=== PATIENT | female | born 1965 | race African-American/Black ===

== ENCOUNTER 2017-03-21 08:52 | Inpatient (IN) ==
--- NOTE | 2017-03-21 10:22 | Order Completion Report ---
See report scanned to EMR
[2017-03-21 10:23] LABS: Apearance,Urine CLEAR (Clear); Bilirubin,Urine Negative (Negative); Blood, Urine Negative (Negative); Glucose,Urine (UA) 50 mg/dL (Negative); Ketones,Urine Negative (Negative); Mucus,Urine Occasional /LPF (Occasional); Nitrite,Urine Negative (Negative); Protein,Urine >=500 MG/DL; RBC,Urine <1 /HPF (0-4); Squamous Epithelial Cell,Urine Occasional /HPF (0-10); Urine Color Yellow (Yellow); Urine Specific Gravity 1.015 (1.001-1.035); Urine Urobilinogen < 2.0 EU/DL (0.2-1.0); WBC,Urine 2 /HPF (0-6)
[2017-03-21 10:51] LABS: Basophils % 0.4 % (0.0-0.8); Eosinophils # 0.2 10*3/uL (0.0-0.87); Eosinophils % 4.3 % (0.00-10.9); Hematocrit 26.9 VOL% (35.7-47.0); Hemoglobin 8.6 GM/DL (12.0-16.0); Immature Granulocytes % 0.2 %; Immature Granulocytes Absolute 0.01 #; Lymphocytes % 18.8 % (21.3-54.2); Mean Corpuscular Hemoglobin 30 PG (27-34); Mean Corpuscular Volume 94.1 FL (87-102); Mean Platelet Volume 11.9 FL (9.6-12.0); Monocytes # 0.6 10*3/uL (0.11-0.8); Monocytes % 11.7 % (1.7-12.7); Neutrophils # 3.4 10*3/uL (1.4-7.4); Neutrophils % 64.6 % (38.7-73.9); Platelet Count 165 T/CUMM (130-400); Red Blood Count 2.86 MC/CUMM (3.8-5.5); Red Cell Distribution Width 13.8 % (9.3-17.3); White Blood Count 5.3 T/CUMM (4-12)
[2017-03-21] MEDS ORDERED: ASPIRIN EC 325 MG TABLET PO STA (11:14)
[2017-03-21] MEDS ORDERED: ASPIRIN 325 MG TABLET ONE (11:17)
[2017-03-21] MEDS ORDERED: ONDANSETRON ODT 4 MG TABLET PO ONE (11:20)
[2017-03-21] MEDS ORDERED: ONDANSETRON ODT 4 MG TABLET PO STA (11:22)
[2017-03-21 11:25] LABS: Alanine Aminotransferase 10 U/L (13-56); Albumin 2.4 G/DL (3.4-5.0); Alkaline Phosphatase 78 U/L (45-117); Aspartate Amino Transferase 17 U/L (0-37); Bilirubin,Total < 0.39 MG/DL (0.2-1.0); Blood Urea Nitrogen 31 MG/DL (7-18); Calcium 8.9 MG/DL (8.5-10.1); Glucose 86 MG/DL (74-106); Osmolality,Calculated 286.3 MOS/KG (273-304); Potassium 4.6 MMOL/L (3.5-5.1); Sodium 141 MMOL/L (136-145); Total Protein 7.9 G/DL (6.4-8.3)
[2017-03-21] MEDS ORDERED: MORPHINE 2 MG/1 ML SYRINGE IV STA (11:38)
[2017-03-21] MEDS ORDERED: MORPHINE 2 MG/1 ML SYRINGE IM STA (11:40)
[2017-03-21] MEDS ORDERED: MORPHINE 2 MG/1 ML SYRINGE ONE (11:41)
--- NOTE | 2017-03-21 11:46 | XRay Report ---
XR chest 2V Date: 03/21/2017 11:13 AM History: Chest pain, back pain Comparison: 07/07/2014 Technique: PA and lateral chest Findings: The heart is slightly smaller in size with decreased perihilar parenchymal findings. Progressive parenchymal findings at the left lung base with larger somewhat loculated appearing left pleural effusion. Associated pleural thickening. Prior cholecystectomy with degenerative changes. Impression: Improved pulmonary edema/infiltration. Progressive atelectasis or other pleural-based pathology at the left lung base with larger loculated appearing small to moderate left pleural effusion with associated indeterminant pleural thickening. Follow-up is recommended. Left lateral decubitus chest may be helpful to determine how much free fluid is present. PROCEDURE INTERPRETED AT [facility] DEPARTMENT OF RADIOLOGY Final Report Signed by: Dr. Ally Luevano
[2017-03-21] MEDS ORDERED: ONDANSETRON 4 MG/2 ML VIAL IM STA (11:55)
[2017-03-21] MEDS ORDERED: ONDANSETRON 4 MG/2 ML VIAL ONE (11:56)
[2017-03-21 12:39] LABS: Troponin I Only 0.153 NG/ML (0.00-0.045)
--- NOTE | 2017-03-21 13:02 | Emergency Department Note ---
Arrival - Arrival Chief Complaint: Back Stated Complaint: back pain ED Nursing Triage Note: PT C/O LOWER BACK PAIN X2 WEEKS THAT HAS NOW INCREASED TO ALL OVER BACK PAIN. DENIES INJURY. Mode of Arrival: Ambulatory Source: Patient Time Seen by Provider: 03/21/17 09:57 - History of Present Illness HPI Narrative: 51 y/o female presents to the Emergency Department complaining of lower back pain, nausea, dizziness, and intermittent chest pain. Pain started two weeks ago but worsened over the last two day. Pain is exacerbated with movement and relieved with rest. Denies chest pain now. States her chest pain is on the right side. Denies radiation of pain. She denies known injury and states "I think it may be related to my kidneys". Patient states she is from [place] but moved to [place] approximately one month ago. Before leaving [place] she was going through the steps to get dialysis started. She never started dialysis before she left [place] and has not seen a Travel Specialist of Primary Care Physician here in [place]. Past medical history significant for dyslipidemia, HTN, renal failure, NIDDM, and Lupus. No local Primary Care Physician. Onset (ago): week(s) (14) Consistency: intermittent Severity: mild Quality: aching Allergies/Adverse Reactions: Allergies Allergy/AdvReac Type Severity Reaction Status Date / Time lisinopril Allergy Swelling Verified 03/21/17 09:20 of Lip/Tongue/Throat metronidazole [From Flagyl] Allergy RASH Verified 03/21/17 09:20 Home Medications: Home Medications Medication Instructions Recorded Confirmed Type Albuterol Sulfate [Ventolin HFA] 2 puff INH Q4HR 03/21/17 03/21/17 History Atorvastatin [Lipitor] 40 mg PO DAILY 03/21/17 03/21/17 History Bumetanide 1 mg PO BID 03/21/17 03/21/17 History Citalopram [CeleXA] 10 mg PO DAILY 03/21/17 03/21/17 History Divalproex [Depakote] 250 mg PO BEDTIME 03/21/17 03/21/17 History Ergocalciferol (Vitamin D2) 50,000 unit PO Q7DAY 03/21/17 03/21/17 History [Vitamin D2] Fluticasone 50 Mcg Nasal Onward 2 sprays BOTH NARES DAILY 03/21/17 03/21/17 History [Flonase Nasal Onward] Hydrocodone/Acetaminophen [[place] 1 each PO BID PRN 03/21/17 03/21/17 History 10-325 Tablet] Hydroxychloroquine [Plaquenil] 200 mg PO DAILY 03/21/17 03/21/17 History Levothyroxine Tab [Synthroid Tab] 75 mcg PO DAILY@0700 03/21/17 03/21/17 History Metoprolol Succinate 100 mg PO DAILY 03/21/17 03/21/17 History NIFEdipine [Nifedipine ER] 30 mg PO DAILY 03/21/17 03/21/17 History Pantoprazole Tab [Protonix Tab] 40 mg PO DAILY 03/21/17 03/21/17 History Zolpidem [Ambien] 10 mg PO BEDTIME PRN 03/21/17 03/21/17 History buPROPion HCl [Bupropion HCl Sr] 150 mg PO DAILY 03/21/17 03/21/17 History predniSONE TAB [PredniSONE] 5 mg PO DAILY 03/21/17 03/21/17 History Review of System - Review of System 12 point system: reviewed and no additional remarkable complaints except as stated - Review of System Cardiovascular: Present: chest pain Gastrointestinal: Present: nausea, vomiting Musculoskeletal: Present: lower back pain Neurological: Present: headache Medical,Surgical,& Family Hx - Medical History Cardio: History of: Hypertension Endocrine: History of: Diabetes Mellitus (NIDDM), Dyslipidemia, Thyroid Disorder Rheumatology: History of;: Systemic Lupus Erythematosus Renal: History of: Renal Failure - Social History Smoking Status: Former smoker Frequency of Alcohol Use: None Type of Drug Use: None Exam Vital Signs: Vital Signs Temperature 97.4 F L 03/22/17 04:00 Pulse Rate 68 03/22/17 04:00 Respiratory Rate 18 03/22/17 04:00 Blood Pressure 126/85 03/22/17 04:00 O2 Sat by Pulse Oximetry 96 03/22/17 04:00 - General General appearance: alert, in no apparent distress - Eye Eye exam: Present: PERRL, EOMI - ENT ENT exam: Present: normal exam, normal oropharynx, mucous membranes moist - Chest Chest inspection: Present: normal inspection - Respiratory Respiratory exam: Present: normal lung sounds bilaterally - Cardiovascular Cardiovascular exam: Present: regular rate, normal rhythm, normal heart sounds - Abdominal Exam Abdominal exam: Present: soft, normal bowel sounds. Absent: tenderness - Extremities Exam Extremities exam: Present: normal inspection, full ROM - Neurological Exam Neurological exam: Present: alert, oriented X3, CN II-XII intact, normal gait - Psychiatric Psychiatric exam: Present: normal affect, normal mood - Skin Skin exam: Present: warm, dry Course Course Narrative: While patient is in the Emergency Department she begins complaining of a headache. States she has a history of migraines and that this headache is similar to headaches she has had in the past. - Consultations Consultation #1: Hospitalist Time: 13:10 (Will admit to Hospitalist ) Results - Labs CBC & BMP: 03/22/17 00:53 03/22/17 00:53 Lab Results: I have reviewed the patients labs Labs: Troponin: 0.134 UA: +protein - EKG EKG results: sinus rhythm - Diagnostic Findings Procedure: Chest x-ray: image reviewed by me, report reviewed by me (see dicated report ), X-ray: image reviewed by me, report reviewed by me (CXR: see dictated report ) Disposition Clinical Impression: Chest pain, Back pain, Renal failure, Anemia Case discussed with: patient Disposition: Still a Patient Condition: Stable
--- NOTE | 2017-03-21 14:44 | Hospitalist History & Physical ---
Assessment and Plan (1) Chest pain Status: Acute Assessment and plan: Intermittent right sided chest pain. Elevated troponin (possibly secondary to renal failure). Will do serial ekgs and troponins. Consult cards. Cardiac monitoring. Chest x-ray shows improved pulmonary edema/infiltration - follow up suggested will order CT. Current Visit: Yes (2) Diabetes Status: Acute Assessment and plan: accuchecks achs. SSI. Current Visit: Yes (3) Renal failure Status: Acute Assessment and plan: Pt. has bun/ creatinine of 31/3.60. Pt. was seen by musical instruments assembler in [place] just received access about 1 month ago. Consult nephrology. Avoid nephrotoxic agents. Current Visit: Yes (4) Hypertension Status: Acute Assessment and plan: Restart home meds. Current Visit: Yes History of Present Illness Chief complaint: chest and back pain History of present illness: Ms. Brooks is a 51 year old black female with a history of GERD, hypertension, diabetes, stage IV kidney disease, and lupus presents to the ED today with complaints of lower back pain, nausea, vomiting, dizziness, and intermittent chest pain. Patient states that she has been having the lower back pain and dizziness for about 1 week but that the nausea and chest pain started over the last 2 days. Patient states that the back pain is worsened with movement and relieved with rest. Patient states that the chest pain was located on the right side of her chest. Patient denies any radiation of the chest pain. Patient denies taking any medication for the pain as she is unable to keep anything down due to the vomiting. Patient also denies any diaphoresis, vision loss, or numbness or tingling. In reference to the dizziness, patient states that the onset is random and states she almost falls when it occurs. She denies falling however but states she "feels funny" when it occurs. Patient is accompanied by her significant other. She just moved to [place] from [place] about a month ago. She reports that before the move she was being seen by musical instruments assembler and had access placed for dialysis. She has not been seen by a musical instruments assembler here nor has she established care with a PCP. On evaluation in the ED, pt noted to have a bun/creatinine of 31/3.60 and an elevated troponin of 0.153. Pt is also anemic with a h&h of 8.6/26.9. Pt's case has been discussed with ER physician and hospitalist Dr. Garcia. Pt. will be admitted to the hospitalist service for further evaluation and treatment. Pt's home meds will be reviewed and reconciled. CODE STATUS was also discussed and pt. wishes to be a full code. Allergies Allergy/AdvReac Type Severity Reaction Status Date / Time lisinopril Allergy Swelling Verified 03/21/17 09:20 of Lip/Tongue/Throat metronidazole [From Flagyl] Allergy RASH Verified 03/21/17 09:20 Medical,Surgical,& Family Hx - Medical History Cardio: History of: Hypertension Endocrine: History of: Diabetes Mellitus (NIDDM), Dyslipidemia, Thyroid Disorder Rheumatology: History of;: Systemic Lupus Erythematosus Renal: History of: Renal Failure - Social History Smoking Status: Former smoker Frequency of Alcohol Use: None Type of Drug Use: None Marital Status: Life Partner Lives With:: Significant Other Functional capacity: wheelchair bound 12 point system: reviewed and no additional remarkable complaints except as stated - Cardiovascular Cardiovascular: Present: chest pain at rest, edema. Absent: diaphoresis, dyspnea, radiating jaw, neck or arm pain - Respiratory Respiratory: Absent: cough, dyspnea Exam - Constitutional Vitals: Period Temp Pulse Resp BP Sys/Enciso Pulse Ox Last 24 Hr 98.6 F-98.6 F 76-84 16-22 160-174/104-108 100-100 General appearance: no acute distress, over weight - Head Head exam: Present: normal inspection, normocephalic - Eye Eye exam: Present: EOMI Pupils: Present: OLGA - Respiratory Respiratory exam: Present: clear to auscultation bilaterally. Absent: wheezes - Cardiovascular Cardiovascular exam: Present: regular rate and rhythm - GI/Abdominal GI/Abdominal exam: Present: normal bowel sounds, soft. Absent: tenderness - Extremities Exam Extremities exam: Present: normal inspection, edema - Neurological Exam Neurological exam: Present: alert, oriented X3 - Psychiatric Psychiatric exam: Present: normal affect, normal mood - Skin Skin exam: Present: normal color, warm, dry Results - Labs CBC & BMP: 03/21/17 09:53 03/21/17 09:53 Lab Results: I have reviewed the past 24 hour labs
[2017-03-21] MEDS ORDERED: ACETAMINOPHEN 325 MG TABLET PO PRN (15:09)
[2017-03-21] MEDS ORDERED: GLUCAGON 1 MG VIAL IM PRN (15:09)
[2017-03-21] MEDS ORDERED: DEXTROSE 50% 25 GM/50 ML VIAL IV PRN (15:09)
--- NOTE | 2017-03-21 16:12 | Cardiology Consult Note ---
<Yessenia Soria E - Last Filed: 03/21/17 16:07> Assessment and Plan - Time spent with patient Time spent with patient: Greater than 30 minutes (due to assessment, plan, and documentation) (1) Atypical chest pain Status: Acute Assessment and plan: See plan of care listed below. Current Visit: Yes (2) Diabetes Status: Chronic Assessment and plan: See plan of care listed below. Current Visit: Yes (3) Hypertension Status: Chronic Assessment and plan: See plan of care listed below. Current Visit: Yes (4) Renal failure Status: Acute Assessment and plan: See plan of care listed below. Current Visit: Yes Qualifiers: Renal failure chronicity: acute on chronic Chronic kidney disease stage: stage 4 (severe) (5) Former tobacco use Status: Chronic Assessment and plan: See plan of care listed below. Current Visit: Yes (6) Chronic anemia Status: Chronic Assessment and plan: See plan of care listed below. Current Visit: Yes (7) Elevated troponin Status: Acute Assessment and plan: See plan of care listed below. Current Visit: Yes (8) Back pain Status: Acute Assessment and plan: See plan of care listed below. Current Visit: Yes Qualifiers: Back pain location: low back pain (9) AV fistula Status: Chronic Assessment and plan: See plan of care listed below. Current Visit: Yes (10) Sleep disorder, unspecified Status: Acute Assessment and plan: See plan of care listed below. 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 Brooks is a 51 y/o BF who has a history of hypertension, diabetes, chronic kidney disease (stage IV), GERD, and lupus. She is a former smoker, quitting 1 month ago and smoking approximately 1PPD since age 18. She quit drinking alcohol 1 month ago. She recently moved to [place] from [facility] and now resides here with her boyfriend. 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 She also tells me that she saw cardiology approximately 1 year ago due to increased edema and had a stress test performed which she believes was okay. Her mother had chronic renal failure, on dialysis, as well as hypertension and at age 57. Her sister is 61, has hypertension and chronic renal failure on dialysis. Ms. Brooks presented to the emergency room today with complaints of lower back pain, nausea, vomiting, dizziness, migraine, and intermittent right sided chest pain. She states these symptoms have been ongoing for approximately 1 week. She also complains of dizziness and being easily fatigued for the past couple of months. She describes her chest discomfort as being intermittent right sided chest pains that last approximately 20 minutes and go away on their own. She is unable to adequately describe the character of her pain but tells me that it feels like her usual reflux pain. She denies exertional chest discomfort. Upon arrival, she was noted to have a creatinine of 3.6 with GFR 20, H&H 8.6 & 26.9, troponin of 0.153 with normal CPK and CKMB, potassium 4.6, D-dimer 3.6. She has undergone chest CT and we are awaiting these results. Echocardiogram is pending. EKG shows sinus rhythm, no acute ST abnormality. Chest x-ray revealed small to moderate left sided pleural effusion. Dr. Santacruz to follow with further plan and addendum. IMPRESSION/PLAN: - ATYPICAL CHEST PAIN: Will continue to cycle cardiac biomarkers and EKGs. Given her risk factors, we will proceed with cardiac screening with nuclear stress testing in the morning. Echocardiogram is pending. Will await results. - DIABETES MELLITUS: Continue accuchecks and sliding scale insulin. - HYPERTENSION: Blood pressure uncontrolled. Continue home medications. Will continue to monitor and adjust accordingly. - CHRONIC RENAL FAILURE, STAGE IV: Creatinine 3.6 with GFR 20 - FORMER TOBACCO USE: Quit 1 month ago. - CHRONIC ANEMIA: Monitor CBCs. No obvious signs of overt bleeding. - TRIVIAL TROPONIN IN THE FACE OF CRF: Will continue to follow trend. - CHRONIC LOW BACK PAIN: Will defer further management to attending. - S/P LEFT UPPER ARM AV FISTULA: Done in [place], [place]. Patient has yet to be dialyzed or establish care with nephrology in [place]. - EKG benign, ST-T wave changes only, mild. - WALLACE, UNTREATED: Diagnosed about 2 months ago, never followed up for CPAP. Will consult Sleep Medicine. - OBESITY: Chronic. - BILATERAL CAROTID BRUIT: Once she has recovered from her acute issues, she will need to follow up with Dr. Santacruz in the clinic with carotid ultrasound. CC: Zuly Garcia MD - Home Medications and Allergies Home Medications: Home Medications Medication Instructions Recorded Confirmed Type Albuterol Sulfate [Ventolin HFA] 2 puff INH Q4HR 03/21/17 03/21/17 History Atorvastatin [Lipitor] 40 mg PO DAILY 03/21/17 03/21/17 History Bumetanide 1 mg PO BID 03/21/17 03/21/17 History Citalopram [CeleXA] 10 mg PO DAILY 03/21/17 03/21/17 History Divalproex [Depakote] 250 mg PO BEDTIME 03/21/17 03/21/17 History Ergocalciferol (Vitamin D2) 50,000 unit PO Q7DAY 03/21/17 03/21/17 History [Vitamin D2] Fluticasone 50 Mcg Nasal [place]far[place] 2 sprays BOTH NARES DAILY 03/21/17 03/21/17 History [Flonase Nasal [place]far[place]] Hydrocodone/Acetaminophen [Inwood 1 each PO BID PRN 03/21/17 03/21/17 History 10-325 Tablet] Hydroxychloroquine [Plaquenil] 200 mg PO DAILY 03/21/17 03/21/17 History Levothyroxine Tab [Synthroid Tab] 75 mcg PO DAILY@0700 03/21/17 03/21/17 History Metoprolol Succinate 100 mg PO DAILY 03/21/17 03/21/17 History NIFEdipine [Nifedipine ER] 30 mg PO DAILY 03/21/17 03/21/17 History Pantoprazole Tab [Protonix Tab] 40 mg PO DAILY 03/21/17 03/21/17 History Zolpidem [Ambien] 10 mg PO BEDTIME PRN 03/21/17 03/21/17 History buPROPion HCl [Bupropion HCl Sr] 150 mg PO DAILY 03/21/17 03/21/17 History predniSONE TAB [PredniSONE] 5 mg PO DAILY 03/21/17 03/21/17 History Allergies/Adverse Reactions: Allergies Allergy/AdvReac Type Severity Reaction Status Date / Time lisinopril Allergy Swelling Verified 03/21/17 09:20 of Lip/Tongue/Throat metronidazole [From Flagyl] Allergy RASH Verified 03/21/17 09:20 Review of systems: - Constitutional: Present: fatigue, headache(s), As per HPI. Absent: anorexia, chills, daytime sleepiness, excessive sweating, fever(s), frequent falls, increased appetite, lethargy, malaise, night sweats, stops breathing during sleep, weakness, weight gain, weight loss. - EENT Eyes: Present: As per HPI. Absent: blurry vision, diplopia, loss of vision Ears: Present: As per HPI. Absent: decreased hearing, ear discharge, ear pain Nose, mouth and throat: Present: As per HPI. Absent: dysphagia, epistaxis, headache(s), hoarseness, lip swelling, nasal congestion, neck mass, neck pain, sinus pressure, sore throat, throat swelling, tongue swelling, vertigo - Cardiovascular: Present: chest pain at rest, dyspnea, dyspnea on exertion, edema, as per HPI. Absent: chest pain with activity, claudication, diaphoresis , radiating jaw, neck or arm pain, lightheadedness, orthopnea, palpitations, PND - Respiratory: Present: dyspnea, dyspnea on exertion, cough, as per HPI. Absent : hemoptysis, wheezing, snoring, pain on inspiration - Gastrointestinal: Present: nausea, vomiting, abdominal pain, constipation, heartburn, As per HPI. Absent: bloating, change in bowel habits, diarrhea, hematemesis, hematochezia, loose stools, melena, - Genitourinary: Present: As per HPI. Absent: difficulty urinating, dysuria, flank pain, hematuria, nocturia, urinary frequency, urinary incontinence - Musculoskeletal: Present: back pain, As per HPI. Absent: arthralgias, joint swelling, limited range of motion, muscle cramps, muscle weakness, myalgias - Neurological: Present: dizziness, As per HPI. Absent: abnormal gait, abnormal speech, behavioral changes, confusion, convulsions, disequilibrium, focal weakness, frequent falls, headache(s), memory loss, numbness, paresthesias, radicular pain, syncope, tremor(s) - Psychiatric: Present: As per HPI. Absent: anxiety, confusion, depression, panic attacks - Endocrine: Present: fatigue, As per HPI. Absent: cold intolerance, heat intolerance, polydipsia, polyphagia - Hematologic/Lymphatic: Present: As per HPI. Absent: easy bleeding, easy bruising, lymphadenopathy Medical,Surgical,& Family Hx - Medical History Cardio: History of: Hypertension Psychological: History of: Anxiety Disorders, Depression Endocrine: History of: Diabetes Mellitus (NIDDM), Dyslipidemia, Thyroid Disorder Rheumatology: History of;: Gout, Systemic Lupus Erythematosus Respiratory: History of: Obstructive Sleep Apnea Renal: History of: Renal Failure Gastrointestinal: History of: GERD Other: No history of: Cancer - Surgical History Cardiac Surgeries: Sugical HX of: Cardiac Catheterization Abdominal Surgeries: Patient denies: Appendectomy, Cholecystectomy, Colonoscopy, EGD Reproductive Surgeries: Surgical HX of;: Tubal Ligation - Family History Family History: Reports;: Family Diabetes (MOTHER, FATHER), Family Hypertension (FATHER) Denies;: Family Cancer, Family Heart Disease, Family Stroke - Social History Smoking Status: Former smoker Frequency of Alcohol Use: None Type of Drug Use: None Marital Status: Single Lives With:: Significant Other Functional capacity: independent ambulation Physical Examination Vital Signs Temp Pulse Resp BP Pulse Ox 98.6 F 84 16 160/104 100 03/21/17 09:16 03/21/17 09:16 03/21/17 09:16 03/21/17 09:16 03/21/17 09:16 Exam: General appearance: Appears well. Pleasant and cooperative. Overweight, no acute distress. Head exam: Present: normal inspection, normocephalic, atraumatic. Absent: hematoma, laceration Eye exam: Present: EOMI. Absent: conjunctival injection, nystagmus, periorbital swelling, scleral icterus, laceration to eyelids, jaundice Pupils: Present: PERRL. Absent: constricted, dilated, fixed, irregular, unequal ENT exam: Present: normal exam, normal external ear exam, mucous membranes moist. Neck exam: Present: normal inspection, midline trachea. Bilateral carotid bruit. Absent: masses, lymphadenopathy, tenderness, thyromegaly, Respiratory exam: Present: mildly diminished breath sounds at left lower base, otherwise clear to auscultation bilaterally. Absent: accessory muscle use, chest wall tenderness, rhonchi, wheezing. Cardiovascular exam: Present: regular rate and rhythm. Systolic murmur best appreciated at LUSB. Absent: gallop, rubs GI/Abdominal exam: Present: normal bowel sounds, soft. Absent: distended, firm , hernia, mass, tenderness. Extremities exam: Present: Normal Gait, No Clubbing, No Cyanosis, Upper Extr. Pulses 2+, Lower Extr. Pulses 2+, Trace BLE edema. Capillary refill less than 3 seconds. Musculoskeletal: Present: No Fluid Collection, No Pain, Normal Range of Motion Back exam: Present: normal inspection. Absent: muscle spasm, vertebral tenderness Neurological exam: Present: awake, alert, oriented X3, Moves all extremities well without hemiparesis or paralysis. Grossly intact without resting or essential tremor Psychiatric exam: Present: normal affect, normal mood Skin exam: Present: normal color, warm, dry, intact. Absent: cyanosis, diaphoretic, rash, urticaria Result/EKG - Labs CBC & BMP: 03/21/17 09:53 03/21/17 09:53 Lab Results: I have reviewed the past 24 hour labs Labs: Laboratory Results - last 24 hr 03/21/17 03/21/17 03/21/17 09:53 09:53 09:53 WBC 5.3 RBC 2.86 L Hgb 8.6 L Hct 26.9 L MCV 94.1 MCH 30 MCHC 32.0 RDW 13.8 Plt Count 165 MPV 11.9 Neut % (Auto) 64.6 Lymph % (Auto) 18.8 L Whitley % (Auto) 11.7 Eos % (Auto) 4.3 Baso % (Auto) 0.4 Neut # (Auto) 3.4 Lymph # (Auto) 1.0 L Whitley # (Auto) 0.6 Eos # (Auto) 0.2 Baso # (Auto) 0.0 Immature Gran % 0.2 Nucleated RBC % 0.0 Immature Gran # 0.01 Nucleated RBCs # 0.00 Immature Plt Fraction 0.0 Sodium 141 Potassium 4.6 Chloride 112 H Carbon Dioxide 22 Anion Gap 11.6 BUN 31 H Creatinine 3.60 H GFR Calculation 20 BUN/Creatinine Ratio 8.00 Glucose 86 Calculated Osmolality 286.3 Calcium 8.9 Total Bilirubin < 0.39 AST 17 ALT 10 L Alkaline Phosphatase 78 Total Creatine Kinase CK-MB (CK-2) Troponin I Total Protein 7.9 Albumin 2.4 L Globulin 5.5 H Albumin/Globulin Ratio 0.4 L Urine Color Yellow Urine Appearance Clear Urine pH 6.0 Ur Specific Congers 1.015 Urine Protein >=500 Urine Glucose (UA) 50 Urine Ketones Negative Urine Blood Negative Urine Nitrate Negative Urine Bilirubin Negative Urine Urobilinogen < 2.0 H Urine Leukocytes Negative Urine RBC <1 Urine WBC 2 Ur Squamous Epith Cells Occasional Urine Mucus Occasional Ur Culture Indicated? Not indicated 03/21/17 Unknown WBC RBC Hgb Hct MCV MCH MCHC RDW Plt Count MPV Neut % (Auto) Lymph % (Auto) Whitley % (Auto) Eos % (Auto) Baso % (Auto) Neut # (Auto) Lymph # (Auto) Whitley # (Auto) Eos # (Auto) Baso # (Auto) Immature Gran % Nucleated RBC % Immature Gran # Nucleated RBCs # Immature Plt Fraction Sodium Potassium Chloride Carbon Dioxide Anion Gap BUN Creatinine GFR Calculation BUN/Creatinine Ratio Glucose Calculated Osmolality Calcium Total Bilirubin AST ALT Alkaline Phosphatase Total Creatine Kinase 29 CK-MB (CK-2) < 1.0 Troponin I 0.153 H Total Protein Albumin Globulin Albumin/Globulin Ratio Urine Color Urine Appearance Urine pH Ur Specific Cong[place] Urine Protein Urine Glucose (UA) Urine Ketones Urine Blood Urine Nitrate Urine Bilirubin Urine Urobilinogen Urine Leukocytes Urine RBC Urine WBC Ur Squamous Epith Cells Urine Mucus Ur Culture Indicated? - EKG EKG results: interpreted by me, sinus rhythm <Erich Santacruz - Last Filed: 03/21/17 17:24> History of Present Illness - Consult Narrative History of present illness: Cardiology addendum patient examined Chart reviewed and discussed with nurse Yessenia Soria NP. Patient moved here from [facility] a little over 1 month ago. She has not established with any local physician. Atypical chest pain Multiple risk factors for CAD. Trivial troponin in the face of chronic renal failure stage IV Smoked until 1 month ago. EKG benign. Untreated obstructive sleep apnea recently diagnosed Plan Echo Doppler Lexiscan cardiac stress test Consult Dr. Nicole for WALLACE follow-up Risk factor modification CC: Zuly Garcia MD Physical Examination Vital Signs Temp Pulse Resp BP Pulse Ox 98.6 F 84 16 160/104 100 03/21/17 09:16 03/21/17 09:16 03/21/17 09:16 03/21/17 09:16 03/21/17 09:16 Result/EKG - Labs CBC & BMP: 03/21/17 09:53 03/21/17 09:53 Labs: Laboratory Results - last 24 hr 03/21/17 03/21/17 03/21/17 09:53 09:53 09:53 WBC 5.3 RBC 2.86 L Hgb 8.6 L Hct 26.9 L MCV 94.1 MCH 30 MCHC 32.0 RDW 13.8 Plt Count 165 MPV 11.9 Neut % (Auto) 64.6 Lymph % (Auto) 18.8 L Whitley % (Auto) 11.7 Eos % (Auto) 4.3 Baso % (Auto) 0.4 Neut # (Auto) 3.4 Lymph # (Auto) 1.0 L Whitley # (Auto) 0.6 Eos # (Auto) 0.2 Baso # (Auto) 0.0 Immature Gran % 0.2 Nucleated RBC % 0.0 Immature Gran # 0.01 Nucleated RBCs # 0.00 Immature Plt Fraction 0.0 D-Dimer, Quantitative Sodium 141 Potassium 4.6 Chloride 112 H Carbon Dioxide 22 Anion Gap 11.6 BUN 31 H Creatinine 3.60 H GFR Calculation 20 BUN/Creatinine Ratio 8.00 Glucose 86 Calculated Osmolality 286.3 Calcium 8.9 Iron TIBC % Saturation Ferritin Total Bilirubin < 0.39 AST 17 ALT 10 L Alkaline Phosphatase 78 Total Creatine Kinase CK-MB (CK-2) Troponin I Total Protein 7.9 Albumin 2.4 L Globulin 5.5 H Albumin/Globulin Ratio 0.4 L Urine Color Yellow Urine Appearance Clear Urine pH 6.0 Ur Specific [place] 1.015 Urine Protein >=500 Urine Glucose (UA) 50 Urine Ketones Negative Urine Blood Negative Urine Nitrate Negative Urine Bilirubin Negative Urine Urobilinogen < 2.0 H Urine Leukocytes Negative Urine RBC <1 Urine WBC 2 Ur Squamous Epith Cells Occasional Urine Mucus Occasional Ur Culture Indicated? Not indicated 03/21/17 03/21/17 03/21/17 15:51 15:51 15:51 WBC RBC Hgb Hct MCV MCH MCHC RDW Plt Count MPV Neut % (Auto) Lymph % (Auto) Whitley % (Auto) Eos % (Auto) Baso % (Auto) Neut # (Auto) Lymph # (Auto) Whitley # (Auto) Eos # (Auto) Baso # (Auto) Immature Gran % Nucleated RBC % Immature Gran # Nucleated RBCs # Immature Plt Fraction D-Dimer, Quantitative 3.6 Sodium Potassium Chloride Carbon Dioxide Anion Gap BUN Creatinine GFR Calculation BUN/Creatinine Ratio Glucose Calculated Osmolality Calcium Iron 36 L TIBC 148 L % Saturation 24.3 Ferritin 335.3 H Total Bilirubin AST ALT Alkaline Phosphatase Total Creatine Kinase 29 CK-MB (CK-2) < 1.0 Troponin I 0.134 H Total Protein Albumin Globulin Albumin/Globulin Ratio Urine Color Urine Appearance Urine pH Ur Specific [place] Urine Protein Urine Glucose (UA) Urine Ketones Urine Blood Urine Nitrate Urine Bilirubin Urine Urobilinogen Urine Leukocytes Urine RBC Urine WBC Ur Squamous Epith Cells Urine Mucus Ur Culture Indicated? 03/21/17 Unknown WBC RBC Hgb Hct MCV MCH MCHC RDW Plt Count MPV Neut % (Auto) Lymph % (Auto) Whitley % (Auto) Eos % (Auto) Baso % (Auto) Neut # (Auto) Lymph # (Auto) Whitley # (Auto) Eos # (Auto) Baso # (Auto) Immature Gran % Nucleated RBC % Immature Gran # Nucleated RBCs # Immature Plt Fraction D-Dimer, Quantitative Sodium Potassium Chloride Carbon Dioxide Anion Gap BUN Creatinine GFR Calculation BUN/Creatinine Ratio Glucose Calculated Osmolality Calcium Iron TIBC % Saturation Ferritin Total Bilirubin AST ALT Alkaline Phosphatase Total Creatine Kinase 29 CK-MB (CK-2) < 1.0 Troponin I 0.153 H Total Protein Albumin Globulin Albumin/Globulin Ratio Urine Color Urine Appearance Urine pH Ur Specific Cong[place] Urine Protein Urine Glucose (UA) Urine Ketones Urine Blood Urine Nitrate Urine Bilirubin Urine Urobilinogen Urine Leukocytes Urine RBC Urine WBC Ur Squamous Epith Cells Urine Mucus Ur Culture Indicated?
[2017-03-21] MEDS: SODIUM CHLORIDE 0.9% 1,000 ML IV SCH (16:13)
[2017-03-21 16:40] LABS: Troponin I Only 0.134 NG/ML (0.00-0.045)
--- NOTE | 2017-03-21 16:47 | CT Report ---
CT of the head without contrast. Indication: Dizziness and headaches. There is generalized prominence of the ventricles and sulci, advanced for the patient's age. There are areas of low density in the periventricular white matter, likely related to chronic microvascular ischemia. There is no mass effect or midline shift. There is no evidence of acute hemorrhage. The calvarium is intact. Included paranasal sinuses and mastoid air cells are clear. Impression: Generalized atrophy, advanced for the patient's age. Low density in the periventricular white matter. This is usually attributable to chronic microvascular ischemia but can also be seen with demyelinating processes, post viral and postinflammatory entities, and vasculitis. The CT exam was performed using one or more of the following dose reduction techniques: Automated exposure control, adjustment of the mA and/or kV according to patient size, or use of iterative reconstruction technique. PROCEDURE INTERPRETED AT [facility] DEPARTMENT OF RADIOLOGY Final Report Signed by: Dr. Mellissa Martinez
--- NOTE | 2017-03-21 16:54 | CT Report ---
CT the chest without intravenous contrast. Indication: Abnormal chest x-ray findings. Axial images were obtained with sagittal and coronal 2-D reconstructions. Comparison: PE chest study of July 07, 2014. The lack of intravenous contrast limits this exam. The thyroid gland appears mildly prominent. There is no supraclavicular or axillary lymphadenopathy. The heart size is normal. There is mitral annulus and aortic valve calcification, no pericardial effusion is seen. The thoracic aorta is of normal caliber and demonstrates mild plaque formation. There is a small left-sided pleural effusion with subpulmonic component. There is mild uniform pleural thickening. The amount of pleural effusion is very similar to the 2015 exam. It could be chronic or recurrent. No definite findings of loculation. In the left lower lobe, there are linear areas of atelectasis plus or minus scarring. There is mild bronchial wall thickening. The right lung is essentially clear. A central venous catheter distal tip is in the SVC. The osseous structures are unchanged. There is superior endplate compression of a couple of upper thoracic vertebra. Impression: 1. Small to medium-sized left-sided pleural effusion without loculation. Uniform linear pleural thickening is also suggested. The amount of fluid is similar to the 2015 exam. There is atelectasis and mild bronchial wall thickening involving the left lower lung field. 2. Mitral and aortic valve calcification. The CT exam was performed using one or more of the following dose reduction techniques: Automated exposure control, adjustment of the mA and/or kV according to patient size, or use of iterative reconstruction technique. PROCEDURE INTERPRETED AT [facility] DEPARTMENT OF RADIOLOGY Final Report Signed by: Dr. Mellissa Martinez
[2017-03-21 16:59] LABS: % Iron Saturation 24.3 % (18-50); Ferritin 335.3 ng/ml (8-252)
--- NOTE | 2017-03-21 17:01 | CT Report ---
CT of the lumbar spine without contrast. Indication: Back pain. There is a left-sided pleural effusion. There is pleural thickening present at the left lower thorax. The gallbladder has been removed. Possible nonobstructing calculus at the right midpole. Atherosclerotic calcification is present within a normal caliber abdominal aorta, extending into both renal artery origins. There is calcification present within the right pelvis, which may likely represent vascular or uterine calcification. The normal lordosis of the lumbar spine is demonstrated. Appropriate alignment is seen throughout. There is bulging of the L4-L5 disc. There is prominent bulging of the L5-S1 disc, with degenerative endplate change and anterior and posterior osteophyte formation. No evidence of fracture. No lytic or blastic lesion. Impression: Lower lumbar spondylosis. The CT exam was performed using one or more of the following dose reduction techniques: Automated exposure control, adjustment of the mA and/or kV according to patient size, or use of iterative reconstruction technique. PROCEDURE INTERPRETED AT [facility] DEPARTMENT OF RADIOLOGY Final Report Signed by: Dr. Mellissa Martinez
[2017-03-21] MEDS: ENOXAPARIN 30 MG/0.3 ML SYRINGE SUBCUT SCH (17:07)
--- NOTE | 2017-03-21 17:18 | Post Interventional Procedure ---
Pre-op diagnosis: n/v dizziness, chest pain, poor IV access Post-op diagnosis: same Procedure: central venous catheter placement Contrast: none Flouroscopy: 0.1 min Radiologist: Ish Delgadillo Anesthesia: local Specimens: none sent Estimated blood loss: minimal (2 mL) Complications: none Condition: stable Description/Findings: Right IJ 7 Fr triple lumen central venous catheter placement done and ready for use Assessment and Plan - Time spent with patient Time spent with patient: Less than 30 minutes
[2017-03-21] MEDS: INSULIN LISPRO 100 UNIT/ML SUBCUT SCH ×2 (17:19→21:29)
[2017-03-21] MEDS: ISOSORBIDE MONONITRATE 30 MG TABLET PO SCH (17:19)
[2017-03-21] MEDS: ONDANSETRON 4 MG/2 ML VIAL IV PRN ×2 (17:20→22:01)
--- NOTE | 2017-03-21 17:23 | Interventional Radiology Rpt ---
IR cvc insert nt >5, US guide vascular access, IR fluoro guide cv cath Central Line placement using fluoroscopic and ultrasound guidance Ultrasound of the right neck Clinical Information: 59-year-old female with newly diagnosed renal failure and starting on dialysis presents with dizziness and nausea vomiting chest pain possible myocardial infarction and poor IV access. Central venous catheter is requested. Physician[s]: Dr. Delgadillo Procedure: The patient was advised of the benefits, risks, and alternatives of the procedure and informed consent was obtained. A time out was performed with verification of the patient's name, MRN, site of procedure, and type of procedure to be performed. The patient was positioned in the supine position on the angiographic table. The site was prepped and draped in the usual sterile fashion. Local anesthesia only was used for the procedure. A metalizing machine operator radiograph reveals no relevant abnormality. The neck and anterior chest wall were anesthetized with lidocaine. The right internal jugular vein was accessed using a microintroducer needle via a lateral approach with ultrasound guidance. Ultrasound image capture of vascular access was obtained for the patient's permanent record. A 0.025" jwire was advanced into the superior vena cava, the needle was removed and a microintroducer sheath was placed. An Amplatz wire was then passed into the inferior vena cava. An incision was made at the puncture site using a scalpel. The tract was serially dilated over the wire. A 7 [place] triple lumen 15 cm Arrow central venous catheter was placed with its tip at the cavoatrial junction under fluoroscopic guidance. The ports aspirate and flush freely. The catheter was sutured in place using 3-0 silk and covered with a sterile dressing. The patient tolerated the procedure well and was returned to the PRU in stable condition. EBL: < 5 mL. Complications: None. Total Fluoroscopy Time: 0.1 minutes. Total number of images for the procedure: 2 Conclusion: Successful placement of a triple lumen central venous catheter via the right internal jugular vein. The catheter is ready for immediate use. PROCEDURE INTERPRETED AT [facility] DEPARTMENT OF RADIOLOGY Final Report Signed by: Ish Delgadillo
--- NOTE | 2017-03-21 19:13 | Nephrology Consult Note ---
History of Present Illness Chief complaint: Chronic kidney disease History of present illness: Ms. Brooks is a 51 year old female with history of chronic kidney disease due to hypertension, diabetes, and lupus. She was diagnosed in 2009 with lupus. She also takes intake medicines on occasion for her history of back pain. She has recently relocated from the [facility] over the last 2 months and is now trying to establish healthcare providers. She described having severe aches pains associated with fatigue shortness of breath. The patient states she has been out of her prednisone for the past several weeks started to feel more shortness of breath and weakness. That is when she is thought to see medical attention. Of note, she is not aware of what her last serum creatinine is but she does know that her renal function level is a chronic kidney disease stage IV. At present patient has an AV fistula that is maturing over the past several months. No rashes or bruises are appreciated. No other changes in her medicines. Serum creatinine is noted to be 3.6 today as well as the potassium of 4.6. Home Medications Medication Instructions Recorded Confirmed Type Albuterol Sulfate [Ventolin HFA] 2 puff INH Q4HR 03/21/17 03/21/17 History Atorvastatin [Lipitor] 40 mg PO DAILY 03/21/17 03/21/17 History Bumetanide 1 mg PO BID 03/21/17 03/21/17 History Citalopram [CeleXA] 10 mg PO DAILY 03/21/17 03/21/17 History Divalproex [Depakote] 250 mg PO BEDTIME 03/21/17 03/21/17 History Ergocalciferol (Vitamin D2) 50,000 unit PO Q7DAY 03/21/17 03/21/17 History [Vitamin D2] Fluticasone 50 Mcg Nasal [place] 2 sprays BOTH NARES DAILY 03/21/17 03/21/17 History [Flonase Nasal [place]] Hydrocodone/Acetaminophen [[place] 1 each PO BID PRN 03/21/17 03/21/17 History 10-325 Tablet] Hydroxychloroquine [Plaquenil] 200 mg PO DAILY 03/21/17 03/21/17 History Levothyroxine Tab [Synthroid Tab] 75 mcg PO DAILY@0700 03/21/17 03/21/17 History Metoprolol Succinate 100 mg PO DAILY 03/21/17 03/21/17 History NIFEdipine [Nifedipine ER] 30 mg PO DAILY 03/21/17 03/21/17 History Pantoprazole Tab [Protonix Tab] 40 mg PO DAILY 03/21/17 03/21/17 History Zolpidem [Ambien] 10 mg PO BEDTIME PRN 03/21/17 03/21/17 History buPROPion HCl [Bupropion HCl Sr] 150 mg PO DAILY 03/21/17 03/21/17 History predniSONE TAB [PredniSONE] 5 mg PO DAILY 03/21/17 03/21/17 History Allergies Allergy/AdvReac Type Severity Reaction Status Date / Time lisinopril Allergy Swelling Verified 03/21/17 09:20 of Lip/Tongue/Throat metronidazole [From Flagyl] Allergy RASH Verified 03/21/17 09:20 Medical,Surgical,& Family Hx - Medical History Cardio: History of: Hypertension Psychological: History of: Anxiety Disorders, Depression Endocrine: History of: Diabetes Mellitus (NIDDM), Dyslipidemia, Thyroid Disorder Rheumatology: History of;: Gout, Systemic Lupus Erythematosus Respiratory: History of: Obstructive Sleep Apnea Renal: History of: Renal Failure Gastrointestinal: History of: GERD Other: No history of: Cancer - Surgical History Cardiac Surgeries: Sugical HX of: Cardiac Catheterization Abdominal Surgeries: Patient denies: Appendectomy, Cholecystectomy, Colonoscopy, EGD Reproductive Surgeries: Surgical HX of;: Tubal Ligation - Family History Family History: Reports;: Family Diabetes (MOTHER, FATHER), Family Hypertension (FATHER) Denies;: Family Cancer, Family Heart Disease, Family Stroke - Social History Smoking Status: Former smoker Frequency of Alcohol Use: None Type of Drug Use: None Review of Systems Constitutional: fatigue, lethargy, no fever(s) Cardiovascular: dyspnea on exertion Exam - Vital Signs Vital signs: Period Temp Pulse Resp BP Sys/Enciso Pulse Ox Last 24 Hr 96.4 F-98.6 F 75-84 16-22 160-186/101-120 97-100 - General Appearance General appearance: well-developed, well-nourished EENT: ATNC Neck: supple Respiratory: clear Cardiology: no edema, regular rate, regular rhythm Gastrointestinal: normoactive bowel sounds, no tenderness Neurologic: alert and oriented x3, CN 3-12 intact Musculoskeletal: no clubbing Psychiatric: mood/affect appropriate, cooperative Results - Labs CBC & BMP: 03/21/17 09:53 10/09/17 09:53 Assessment and Plan (1) Chronic kidney disease Status: Chronic Assessment and plan: Chronic kidney disease due to hypertension diabetes and lupus. Patient with a fistula in place. History of NSAID use. Recent history of tobacco use. Current Visit: Yes Qualifiers: Chronic kidney disease stage: stage 3 (moderate) Qualified Code(s): N18.3 - Chronic kidney disease, stage 3 (moderate) (2) Back pain Status: Chronic Current Visit: Yes Qualifiers: Back pain location: low back pain (3) Diabetes Status: Chronic Current Visit: Yes Qualifiers: Diabetes mellitus type: type 2 (4) Former tobacco use Status: Chronic Current Visit: Yes (5) Lupus Status: Chronic Assessment and plan: restart prednisone 10mg daily Current Visit: Yes
[2017-03-21] MEDS ORDERED: METOPROLOL TARTRATE 25 MG TABLET PO SCH (21:00)
[2017-03-21] MEDS: MORPHINE 2 MG/1 ML SYRINGE IV PRN (22:00)
[2017-03-21] MEDS: hydrALAZINE 25 MG TABLET PO SCH (22:01)
[2017-03-22 01:17] LABS: Basophils % 0.2 % (0.0-0.8); Eosinophils # 0.3 10*3/uL (0.0-0.87); Eosinophils % 5.1 % (0.00-10.9); Hematocrit 25.6 VOL% (35.7-47.0); Hemoglobin 8.1 GM/DL (12.0-16.0); Immature Granulocytes % 0.4 %; Immature Granulocytes Absolute 0.02 #; Lymphocytes # 1.1 10*3/uL (1.4-4.0); Lymphocytes % 19.7 % (21.3-54.2); Mean Corpuscular HGB Conc 31.6 GM/DL (32-36); Mean Corpuscular Hemoglobin 30 PG (27-34); Mean Corpuscular Volume 94.8 FL (87-102); Mean Platelet Volume 12.2 FL (9.6-12.0); Monocytes # 0.6 10*3/uL (0.11-0.8); Monocytes % 10.5 % (1.7-12.7); Neutrophils # 3.4 10*3/uL (1.4-7.4); Neutrophils % 64.1 % (38.7-73.9); Platelet Count 148 T/CUMM (130-400); White Blood Count 5.3 T/CUMM (4-12)
[2017-03-22 01:52] LABS: Free T4 (Free Thyroxine) 0.78 NG/DL (0.76-1.46)
[2017-03-22 01:59] LABS: Calcium 8.8 MG/DL (8.5-10.1); Magnesium 1.5 MG/DL (1.8-2.4); Osmolality,Calculated 290.1 MOS/KG (273-304); Potassium 4.4 MMOL/L (3.5-5.1); Risk Ratio 4.48; Thyroid Stimulating Hormone 6.54 uIU/ml (0.358-3.74)
[2017-03-22 02:05] LABS: Troponin I Only 0.109 NG/ML (0.00-0.045); Troponin I Only 0.111 NG/ML (0.00-0.045)
[2017-03-22] MEDS: MORPHINE 2 MG/1 ML SYRINGE IV PRN ×2 (02:13→06:16)
[2017-03-22] MEDS: SODIUM CHLORIDE 0.9% 1,000 ML IV SCH (07:02)
--- NOTE | 2017-03-22 07:33 | Order Completion Report ---
See report scanned to EMR
[2017-03-22] MEDS: INSULIN LISPRO 100 UNIT/ML SUBCUT SCH ×4 (08:37→21:03)
--- NOTE | 2017-03-22 08:51 | Cardiology Progress Note ---
Cardiology - PN: Subj Interval history: Cardiology note Telemetry has been benign. No pain. Blood pressure has been running high. 160/94 Regular rhythm no murmur or gallop Decreased breath sounds but clear Abdomen benign. Lab data today White count 5.3 hemoglobin 8.1 hematocrit 25.6 MCV 94.8 Sodium 142 potassium 4.4 chloride 110 CO2 23 BUN 36 creatinine 3.70 Glucose 93 Trivial troponin Impression atypical chest pain Multiple risk factors for CAD Trivial troponin in the face of chronic renal failure stage IV Active smoker until 1 month ago Untreated obstructive sleep apnea recently diagnosed Normocytic anemia Patient moved here from [facility] 1 month ago. She has not yet established with any local physician. Plan Echo Doppler Home medications including metoprolol 100 mg daily and nifedipine 30 mg daily have been restarted Lexiscan Cardiolite stress test today Dr. Nicole consulted for WALLACE follow-up Consult nephrology to establish care Exam (Progress Note) - Constitutional Vitals: Period Temp Pulse Resp BP Sys/Enciso Pulse Ox Last 24 Hr 96.4 F-98.6 F 68-84 16-22 126-186/85-120 90-100 Result/EKG - Labs CBC & BMP: 03/22/17 00:53 03/22/17 00:53 Labs: Laboratory Results - last 24 hr 03/21/17 03/21/17 03/21/17 09:53 09:53 09:53 WBC 5.3 RBC 2.86 L Hgb 8.6 L Hct 26.9 L MCV 94.1 MCH 30 MCHC 32.0 RDW 13.8 Plt Count 165 MPV 11.9 Neut % (Auto) 64.6 Lymph % (Auto) 18.8 L [place] % (Auto) 11.7 Eos % (Auto) 4.3 Baso % (Auto) 0.4 Neut # (Auto) 3.4 Lymph # (Auto) 1.0 L [place] # (Auto) 0.6 Eos # (Auto) 0.2 Baso # (Auto) 0.0 Immature Gran % 0.2 Nucleated RBC % 0.0 Immature Gran # 0.01 Nucleated RBCs # 0.00 Immature Plt Fraction 0.0 D-Dimer, Quantitative Sodium 141 Potassium 4.6 Chloride 112 H Carbon Dioxide 22 Anion Gap 11.6 BUN 31 H Creatinine 3.60 H GFR Calculation 20 BUN/Creatinine Ratio 8.00 Glucose 86 POC Glucose Hemoglobin A1c Calculated Osmolality 286.3 Calcium 8.9 Magnesium Iron TIBC % Saturation Ferritin Total Bilirubin < 0.39 AST 17 ALT 10 L Alkaline Phosphatase 78 Total Creatine Kinase CK-MB (CK-2) Troponin I B-Natriuretic Peptide Total Protein 7.9 Albumin 2.4 L Globulin 5.5 H Albumin/Globulin Ratio 0.4 L Triglycerides Cholesterol LDL Cholesterol VLDL Cholesterol HDL Cholesterol Heart Disease Risk Ratio Free T4 TSH 3rd Generation Urine Color Yellow Urine Appearance Clear Urine pH 6.0 Ur Specific [place] 1.015 Urine Protein >=500 Urine Glucose (UA) 50 Urine Ketones Negative Urine Blood Negative Urine Nitrate Negative Urine Bilirubin Negative Urine Urobilinogen < 2.0 H Urine Leukocytes Negative Urine RBC <1 Urine WBC 2 Ur Squamous Epith Cells Occasional Urine Mucus Occasional Ur Culture Indicated? Not indicated 03/21/17 03/21/17 03/21/17 15:51 15:51 15:51 WBC RBC Hgb Hct MCV MCH MCHC RDW Plt Count MPV Neut % (Auto) Lymph % (Auto) [place] % (Auto) Eos % (Auto) Baso % (Auto) Neut # (Auto) Lymph # (Auto) [place] # (Auto) Eos # (Auto) Baso # (Auto) Immature Gran % Nucleated RBC % Immature Gran # Nucleated RBCs # Immature Plt Fraction D-Dimer, Quantitative 3.6 Sodium Potassium Chloride Carbon Dioxide Anion Gap BUN Creatinine GFR Calculation BUN/Creatinine Ratio Glucose POC Glucose Hemoglobin A1c Calculated Osmolality Calcium Magnesium Iron 36 L TIBC 148 L % Saturation 24.3 Ferritin 335.3 H Total Bilirubin AST ALT Alkaline Phosphatase Total Creatine Kinase 29 CK-MB (CK-2) < 1.0 Troponin I 0.134 H B-Natriuretic Peptide Total Protein Albumin Globulin Albumin/Globulin Ratio Triglycerides Cholesterol LDL Cholesterol VLDL Cholesterol HDL Cholesterol Heart Disease Risk Ratio Free T4 TSH 3rd Generation Urine Color Urine Appearance Urine pH Ur Specific [place] Urine Protein Urine Glucose (UA) Urine Ketones Urine Blood Urine Nitrate Urine Bilirubin Urine Urobilinogen Urine Leukocytes Urine RBC Urine WBC Ur Squamous Epith Cells Urine Mucus Ur Culture Indicated? 03/21/17 03/21/17 03/21/17 17:12 19:59 Unknown WBC RBC Hgb Hct MCV MCH MCHC RDW Plt Count MPV Neut % (Auto) Lymph % (Auto) [place] % (Auto) Eos % (Auto) Baso % (Auto) Neut # (Auto) Lymph # (Auto) [place] # (Auto) Eos # (Auto) Baso # (Auto) Immature Gran % Nucleated RBC % Immature Gran # Nucleated RBCs # Immature Plt Fraction D-Dimer, Quantitative Sodium Potassium Chloride Carbon Dioxide Anion Gap BUN Creatinine GFR Calculation BUN/Creatinine Ratio Glucose POC Glucose 93 129 H Hemoglobin A1c Calculated Osmolality Calcium Magnesium Iron TIBC % Saturation Ferritin Total Bilirubin AST ALT Alkaline Phosphatase Total Creatine Kinase 29 CK-MB (CK-2) < 1.0 Troponin I 0.153 H B-Natriuretic Peptide Total Protein Albumin Globulin Albumin/Globulin Ratio Triglycerides Cholesterol LDL Cholesterol VLDL Cholesterol HDL Cholesterol Heart Disease Risk Ratio Free T4 TSH 3rd Generation Urine Color Urine Appearance Urine pH Ur Specific [place] Urine Protein Urine Glucose (UA) Urine Ketones Urine Blood Urine Nitrate Urine Bilirubin Urine Urobilinogen Urine Leukocytes Urine RBC Urine WBC Ur Squamous Epith Cells Urine Mucus Ur Culture Indicated? 03/22/17 03/22/17 03/22/17 00:53 00:53 00:53 WBC 5.3 RBC 2.70 L Hgb 8.1 L Hct 25.6 L MCV 94.8 MCH 30 MCHC 31.6 L RDW 14.0 Plt Count 148 MPV 12.2 H Neut % (Auto) 64.1 Lymph % (Auto) 19.7 L [place] % (Auto) 10.5 Eos % (Auto) 5.1 Baso % (Auto) 0.2 Neut # (Auto) 3.4 Lymph # (Auto) 1.1 L [place] # (Auto) 0.6 Eos # (Auto) 0.3 Baso # (Auto) 0.0 Immature Gran % 0.4 Nucleated RBC % 0.0 Immature Gran # 0.02 Nucleated RBCs # 0.00 Immature Plt Fraction 0.0 D-Dimer, Quantitative Sodium 142 Potassium 4.4 Chloride 110 H Carbon Dioxide 23 Anion Gap 13.4 BUN 36 H Creatinine 3.70 H GFR Calculation 19 BUN/Creatinine Ratio 9.00 Glucose 93 POC Glucose Hemoglobin A1c Calculated Osmolality 290.1 Calcium 8.8 Magnesium 1.5 L Iron TIBC % Saturation Ferritin Total Bilirubin AST ALT Alkaline Phosphatase Total Creatine Kinase 28 CK-MB (CK-2) < 1.0 Troponin I 0.109 H B-Natriuretic Peptide Total Protein Albumin Globulin Albumin/Globulin Ratio Triglycerides 215 H Cholesterol 188 LDL Cholesterol 106.0 VLDL Cholesterol 43.0 HDL Cholesterol 42 Heart Disease Risk Ratio 4.48 Free T4 TSH 3rd Generation 6.540 H Urine Color Urine Appearance Urine pH Ur Specific [place] Urine Protein Urine Glucose (UA) Urine Ketones Urine Blood Urine Nitrate Urine Bilirubin Urine Urobilinogen Urine Leukocytes Urine RBC Urine WBC Ur Squamous Epith Cells Urine Mucus Ur Culture Indicated? 03/22/17 03/22/17 03/22/17 00:53 00:53 00:53 WBC RBC Hgb Hct MCV MCH MCHC RDW Plt Count MPV Neut % (Auto) Lymph % (Auto) [place] % (Auto) Eos % (Auto) Baso % (Auto) Neut # (Auto) Lymph # (Auto) [place] # (Auto) Eos # (Auto) Baso # (Auto) Immature Gran % Nucleated RBC % Immature Gran # Nucleated RBCs # Immature Plt Fraction D-Dimer, Quantitative Sodium Potassium Chloride Carbon Dioxide Anion Gap BUN Creatinine GFR Calculation BUN/Creatinine Ratio Glucose POC Glucose Hemoglobin A1c 6.3 Calculated Osmolality Calcium Magnesium Iron TIBC % Saturation Ferritin Total Bilirubin AST ALT Alkaline Phosphatase Total Creatine Kinase 28 CK-MB (CK-2) < 1.0 Troponin I 0.111 H B-Natriuretic Peptide 119 H Total Protein Albumin Globulin Albumin/Globulin Ratio Triglycerides Cholesterol LDL Cholesterol VLDL Cholesterol HDL Cholesterol Heart Disease Risk Ratio Free T4 0.78 TSH 3rd Generation Urine Color Urine Appearance Urine pH Ur Specific [place] Urine Protein Urine Glucose (UA) Urine Ketones Urine Blood Urine Nitrate Urine Bilirubin Urine Urobilinogen Urine Leukocytes Urine RBC Urine WBC Ur Squamous Epith Cells Urine Mucus Ur Culture Indicated? 03/22/17 07:50 WBC RBC Hgb Hct MCV MCH MCHC RDW Plt Count MPV Neut % (Auto) Lymph % (Auto) [place] % (Auto) Eos % (Auto) Baso % (Auto) Neut # (Auto) Lymph # (Auto) [place] # (Auto) Eos # (Auto) Baso # (Auto) Immature Gran % Nucleated RBC % Immature Gran # Nucleated RBCs # Immature Plt Fraction D-Dimer, Quantitative Sodium Potassium Chloride Carbon Dioxide Anion Gap BUN Creatinine GFR Calculation BUN/Creatinine Ratio Glucose POC Glucose 94 Hemoglobin A1c Calculated Osmolality Calcium Magnesium Iron TIBC % Saturation Ferritin Total Bilirubin AST ALT Alkaline Phosphatase Total Creatine Kinase CK-MB (CK-2) Troponin I B-Natriuretic Peptide Total Protein Albumin Globulin Albumin/Globulin Ratio Triglycerides Cholesterol LDL Cholesterol VLDL Cholesterol HDL Cholesterol Heart Disease Risk Ratio Free T4 TSH 3rd Generation Urine Color Urine Appearance Urine pH Ur Specific [place] Urine Protein Urine Glucose (UA) Urine Ketones Urine Blood Urine Nitrate Urine Bilirubin Urine Urobilinogen Urine Leukocytes Urine RBC Urine WBC Ur Squamous Epith Cells Urine Mucus Ur Culture Indicated?
[2017-03-22] MEDS ORDERED: ERGOCALCIFEROL 50,000 UNIT CAPSULE PO SCH (09:00)
[2017-03-22] MEDS ORDERED: buPROPion SR 150 MG TABLET PO SCH (09:00)
--- NOTE | 2017-03-22 09:06 | Event Note ---
Patient admitted with atypical chest pain for Lexiscan cardiolite due to gait instability and dizziness. Patient experienced no chest pain, heaviness, or tightness. She did have mild dyspnea, improved prior to transitioning to final scan. Blood pressure responded appropriately. No significant EKG changes noted. Patient now to nuclear medicine for final scan. Dr. Santacruz to read, interpret, and advise.
[2017-03-22 09:58] LABS: INR 0.9
[2017-03-22] MEDS: ALBUTEROL 2.5 MG/3 ML NEB RESP TX SCH ×5 (10:00→23:35)
[2017-03-22] MEDS ORDERED: REGADENOSON 0.4 MG/5 ML SYRINGE IV ONE (10:13)
--- NOTE | 2017-03-22 11:47 | Hospitalist Progress Note ---
Assessment and Plan (1) Chest pain Status: Acute Assessment and plan: Patient is undergoing a stress test. Cardiology is following. Plan Continue current management follow results of test Current Visit: Yes (2) Hypertension Status: Chronic Assessment and plan: poorly controlled, home meds metoprolol and Nifepidine have been added, will monitor response Current Visit: Yes (3) Chronic kidney disease Status: Chronic Assessment and plan: Nephrology is following. Patient has a fistula in place. She was previously being worked up for future dialysis at her clinic Current Visit: Yes Qualifiers: Chronic kidney disease stage: stage 3 (moderate) Qualified Code(s): N18.3 - Chronic kidney disease, stage 3 (moderate) (4) Lupus Status: Chronic Assessment and plan: on hydroxychloroquin and steroids Current Visit: Yes (5) Diabetes Status: Chronic Assessment and plan: A1c-6.3, continue current regime. Current Visit: Yes Qualifiers: Diabetes mellitus type: type 2 (6) Dyslipidemia Status: Acute Assessment and plan: continue with statins Current Visit: Yes (7) Hypothyroidism Status: Acute Assessment and plan: continue with supplements, synthroid has been increased to 100mcg due to high TSH, follow response Current Visit: Yes (8) WALLACE (obstructive sleep apnea) Status: Acute Assessment and plan: outpatient follow up Current Visit: Yes (9) Pleural effusion Status: Acute Assessment and plan: CT showed Small to medium-sized left-sided pleural effusion without loculation. Uniform linear pleural thickening is also suggested,atelectasis and mild bronchial wall thickening involving the left lower lung field. Plan Diagnostic paracentesis, continue antibiotics, await Pulm's input Current Visit: Yes Hospitalist: Subjective Interval history: Patient is undergoing a stress test. CT chest showed a small to medium-sized left-sided pleural effusion without loculation. Uniform linear pleural thickening. She has also gone for USS- guided thoracocentesis Exam - Constitutional Vitals: Period Temp Pulse Resp BP Sys/Enciso Pulse Ox Last 24 Hr 96.4 F-97.7 F 68-85 16-22 126-186/85-123 90-100 General appearance: no acute distress, over weight - Head Head exam: Present: normal inspection - Respiratory Respiratory exam: Present: decreased breath sounds - Cardiovascular Cardiovascular exam: Present: regular rate and rhythm - GI/Abdominal GI/Abdominal exam: Present: normal bowel sounds - Extremities Exam Extremities exam: Present: normal inspection - Neurological Exam Neurological exam: Present: alert, oriented X3 Results - Labs CBC & BMP: 03/22/17 00:53 03/22/17 00:53 Lab Results: I have reviewed the past 24 hour labs
--- NOTE | 2017-03-22 11:58 | XRay Report ---
Exam: XR chest post procedure Indication: Status post left thoracentesis Comparison study: Prior chest radiograph 03/21/2017 11:29 AM Findings: Cardiac silhouette is similar to prior. Right-sided central venous catheter is noted in position. There is no pneumothorax following left-sided thoracentesis. There is a decrease in the opacities within the left lung base although residual opacities likely represent pleural thickening and trace pleural fluid with atelectasis. Underlying infiltrates are difficult to exclude. Osseous structures are stable. Impression: No pneumothorax or other acute complication following left thoracentesis with decrease in pleural fluid in the left lung base as expected. PROCEDURE INTERPRETED AT [facility] DEPARTMENT OF RADIOLOGY Final Report Signed by: Ish Delgadillo
--- NOTE | 2017-03-22 12:01 | Post Interventional Procedure ---
Pre-op diagnosis: left pelural effusion Post-op diagnosis: same Procedure: u/s left thoracentesis Contrast: none Flouroscopy: none Radiologist: Ish Delgadillo Anesthesia: local Specimens: other (serosanguinous pleural fluid sent for any request studies) Estimated blood loss: none Complications: none Condition: stable Description/Findings: left pleural effusion seen on u/s and 250mL bloody pleural fluid removed. patient experience a good deal of sharp chest pain, so procedure was stopped. patient was improved following removal of the drain tube. Assessment and Plan - Time spent with patient Time spent with patient: Less than 30 minutes
--- NOTE | 2017-03-22 12:06 | Ultrasound Report ---
Exam: ULTRASOUND-GUIDED THORACENTESIS Clinical history: History of chest pain, renal failure and left pleural effusion. Physician: Dr. Delgadillo. Procedure: Informed consent was obtained prior to the procedure. A formal timeout was performed. Maximum sterile barrier technique was used. A partially loculated left-sided pleural effusion was identified with ultrasound. The left posterior chest was prepped and draped in sterile fashion. 1% lidocaine was used to anesthetize the skin and subcutaneous tissues. Under sonographic guidance, a 6 [place] safety centesis needle and catheter were advanced into the effusion using trocar technique. A captured sonographic image demonstrates positioning of the needle within the targeted pleural fluid. The needle was removed. Through the catheter, we obtained a total of 250 cc of serosanguineous fluid. At this point, the patient developed moderate left chest pain likely related to fluid drainage. Therefore, the perceived was stopped, and the catheter was removed. At this point, the patient's pain improved somewhat. A bandage was placed at the puncture site. The patient tolerated the procedure well. Chest radiograph is pending. Impression: 1. Technically successful ultrasound guided left thoracentesis as detailed above. 2. Post procedure chest radiograph is pending. PROCEDURE INTERPRETED AT [facility] DEPARTMENT OF RADIOLOGY Final Report Signed by: Ish Delgadillo
[2017-03-22 12:19] LABS: Eosinophils,Pleural Fluid 2 %; Lymphocytes,Pleural Fluid 79 %; Monocytes,Pleural Fluid 1 %; Neutrophils,Pleural Fluid 18 %; RBC,Pleural Fluid 98320 T/CUMM
[2017-03-22] MEDS: FLUTICASONE 50 MCG NASAL SPRAY 16 GM BOTTLE BOTH NARES SCH (12:40)
[2017-03-22] MEDS: HYDROXYCHLOROQUINE 200 MG TABLET PO SCH (12:42)
[2017-03-22] MEDS: ISOSORBIDE MONONITRATE 30 MG TABLET PO SCH (12:42)
[2017-03-22] MEDS: CITALOPRAM 20 MG TABLET PO SCH (12:42)
[2017-03-22] MEDS: hydrALAZINE 25 MG TABLET PO SCH ×3 (12:43→20:56)
[2017-03-22] MEDS: METOPROLOL SUCCINATE XL 100 MG TABLET PO SCH (12:43)
[2017-03-22] MEDS: DOCUSATE SODIUM 100 MG CAPSULE PO PRN (12:43)
[2017-03-22] MEDS: PANTOPRAZOLE 40 MG TABLET PO SCH (12:43)
[2017-03-22] MEDS: BUMETANIDE 1 MG TABLET PO SCH ×2 (12:43→20:56)
[2017-03-22] MEDS: ATORVASTATIN 40 MG TABLET PO SCH (12:43)
[2017-03-22] MEDS: LEVOFLOXACIN INJ 250 MG in PREMIX 1 EACH IV SCH (12:44)
[2017-03-22] MEDS: predniSONE 10 MG TABLET PO SCH (12:44)
--- NOTE | 2017-03-22 14:59 | Order Completion Report ---
See report scanned to EMR
--- NOTE | 2017-03-22 15:32 | Pulmonology Consult Note ---
Assessment and Plan (1) Chest pain Status: Acute Assessment and plan: Patient came in with some atypical chest pain and does not appear to have any angina. She did have a previous negative catheterization in [place]. Current Visit: Yes (2) Renal failure Status: Acute Assessment and plan: Her creatinine is 3.7 and at some point in the future she may need dialysis. Current Visit: Yes Qualifiers: Renal failure chronicity: acute on chronic Chronic kidney disease stage: stage 4 (severe) (3) Hypertension Status: Chronic Assessment and plan: Her blood pressure medicines will be adjusted. Current Visit: Yes (4) Diabetes Status: Chronic Assessment and plan: Her diabetes will be monitored. Her glucose is 93 earlier. Current Visit: Yes Qualifiers: Diabetes mellitus type: type 2 (5) Former tobacco use Status: Chronic Assessment and plan: The patient says she stopped smoking a month ago. Hopefully she will stay off cigarettes. She could have a component of mild COPD. Current Visit: Yes (6) Lupus Status: Chronic Assessment and plan: She has no signs of lupus at present and will be observed. Current Visit: Yes (7) Hypothyroidism Status: Acute Assessment and plan: Patient's TSH is 6.5. Her thyroid may need to be adjusted. Current Visit: Yes (8) WALLACE (obstructive sleep apnea) Status: Acute Assessment and plan: She is being evaluated for sleep apnea. Current Visit: Yes (9) Pleural effusion Status: Acute Assessment and plan: Patient had a small left effusion drained looks like it may be a transudate. She does have some fluid retention because of her cardiac status and renal insufficiency. Her chest x-ray does not show any worrisome lesions. Current Visit: Yes History of Present Illness Chief complaint: Pleural effusion History of present illness: Ms. Brooks is a 51 year old black female that has a history of having hypertension, diabetes, chronic renal disease, GE reflux and possible lupus. She had been followed in [place] and recently moved to [place]. Her chronic renal failure was followed by nephrology and she was getting prepared for dialysis. She recently had a shunt placed in her arm. She came to the emergency room because of complaints of dizziness along with nausea and vomiting and some back pain. She was having some vague chest pain. She may have had some mild shortness of breath. She says she has been swelling a little bit. She has been feeling better overall. She was found to have a left pleural effusion and had a thoracentesis today. A small amount of fluid was removed that looks transudative. Overall she says her breathing has been better since admission. She has been a lifelong smoker and says she quit several weeks ago. She says she has inhalers but does not have to use them regularly. She has been taking prednisone for her kidneys and lupus and possibly breathing. She says she ran out of medicines recently. Home Medications Medication Instructions Recorded Confirmed Type Albuterol Sulfate [Ventolin HFA] 2 puff INH Q4HR 03/21/17 03/21/17 History Atorvastatin [Lipitor] 40 mg PO DAILY 03/21/17 03/21/17 History Bumetanide 1 mg PO BID 03/21/17 03/21/17 History Citalopram [CeleXA] 10 mg PO DAILY 03/21/17 03/21/17 History Divalproex [Depakote] 250 mg PO BEDTIME 03/21/17 03/21/17 History Ergocalciferol (Vitamin D2) 50,000 unit PO Q7DAY 03/21/17 03/21/17 History [Vitamin D2] Fluticasone 50 Mcg Nasal [place] 2 sprays BOTH NARES DAILY 03/21/17 03/21/17 History [Flonase Nasal [place]] Hydrocodone/Acetaminophen [[place] 1 each PO BID PRN 03/21/17 03/21/17 History 10-325 Tablet] Hydroxychloroquine [Plaquenil] 200 mg PO DAILY 03/21/17 03/21/17 History Levothyroxine Tab [Synthroid Tab] 75 mcg PO DAILY@0700 03/21/17 03/21/17 History Metoprolol Succinate 100 mg PO DAILY 03/21/17 03/21/17 History NIFEdipine [Nifedipine ER] 30 mg PO DAILY 03/21/17 03/21/17 History Pantoprazole Tab [Protonix Tab] 40 mg PO DAILY 03/21/17 03/21/17 History Zolpidem [Ambien] 10 mg PO BEDTIME PRN 03/21/17 03/21/17 History buPROPion HCl [Bupropion HCl Sr] 150 mg PO DAILY 03/21/17 03/21/17 History predniSONE TAB [PredniSONE] 5 mg PO DAILY 03/21/17 03/21/17 History Allergies Allergy/AdvReac Type Severity Reaction Status Date / Time lisinopril Allergy Swelling Verified 03/21/17 09:20 of Lip/Tongue/Throat metronidazole [From Flagyl] Allergy RASH Verified 03/21/17 09:20 - Constitutional Constitutional: Present: fatigue, weight gain. Absent: anorexia, chills, fever( s) - EENT Eyes: Absent: loss of vision Ears: Absent: decreased hearing Nose, mouth and throat: Absent: dysphagia, headache(s), hoarseness, sinus pressure - Cardiovascular Cardiovascular: Present: dyspnea on exertion, edema. Absent: chest pain at rest , chest pain with activity, palpitations - Respiratory Respiratory: Present: cough, dyspnea, dyspnea on exertion, change in phlegm color. Absent: hemoptysis - Gastrointestinal Gastrointestinal: Present: change in bowel habits. Absent: abdominal pain, dysphagia, heartburn, nausea, vomiting - Genitourinary Genitourinary: Present: difficulty urinating. Absent: dysuria, flank pain, hematuria, urinary frequency - Musculoskeletal Musculoskeletal: Present: back pain (She has some neck pain). Absent: arthralgias, joint swelling - Neurological Neurological: Absent: abnormal speech, focal weakness, paresthesias Exam (Pulmonay) H&P - Constitutional Vitals: Period Temp Pulse Resp BP Sys/Enciso Pulse Ox Last 24 Hr 96.4 F-97.7 F 68-87 18-22 126-174/85-123 90-100 General appearance: no acute distress, over weight - Head Head exam: Present: normal inspection, normocephalic - Eye Eye exam: Present: EOMI. Absent: scleral icterus Pupils: Absent: OLGA - ENT ENT exam: Present: normal exam - Neck Neck exam: Absent: lymphadenopathy, thyromegaly - Respiratory Respiratory exam: Present: rales (She does have some slight crackles in the bases). Absent: accessory muscle use, wheezes - Cardiovascular Cardiovascular exam: Present: regular rate and rhythm. Absent: gallop, systolic murmur - GI/Abdominal GI/Abdominal exam: Present: soft. Absent: distended, organomegaly, tenderness - Extremities Exam Extremities exam: Present: edema (She has mild edema of the legs.). Absent: calf tenderness - Neurological Exam Neurological exam: Present: alert, oriented X3, CN II-XII intact - Psychiatric Psychiatric exam: Present: normal affect, normal mood - Skin Skin exam: Present: warm, dry Medical,Surgical,& Family Hx - Medical History Cardio: History of: Hypertension Psychological: History of: Anxiety Disorders, Depression Endocrine: History of: Diabetes Mellitus (NIDDM), Dyslipidemia, Thyroid Disorder Rheumatology: History of;: Gout, Systemic Lupus Erythematosus Respiratory: History of: Obstructive Sleep Apnea Renal: History of: Renal Failure Gastrointestinal: History of: GERD Other: No history of: Cancer - Surgical History Cardiac Surgeries: Sugical HX of: Cardiac Catheterization Abdominal Surgeries: Patient denies: Appendectomy, Cholecystectomy, Colonoscopy, EGD Reproductive Surgeries: Surgical HX of;: Tubal Ligation - Family History Family History: Reports;: Family Diabetes (MOTHER, FATHER), Family Hypertension (FATHER) Denies;: Family Cancer, Family Heart Disease, Family Stroke - Social History Smoking Status: Former smoker Frequency of Alcohol Use: None Type of Drug Use: None Results - Labs CBC & BMP: 03/22/17 00:53 03/22/17 00:53 - Diagnostic Findings Procedure: Chest x-ray: image reviewed by me, report reviewed by me (Chest x- ray did show a small left pleural effusion. Otherwise the lung fuller are reasonably clear)
[2017-03-22] MEDS: ENOXAPARIN 30 MG/0.3 ML SYRINGE SUBCUT SCH (16:40)
--- NOTE | 2017-03-22 17:11 | Sleep Medicine Consult ---
Assessment and Plan (1) WALLACE (obstructive sleep apnea) Status: Acute Assessment and plan: We will need to confirm diagnosis and I think the most expeditious way to do so is to repeat home sleep testing while in hospital tonight. We will do her own room air. We will follow-up those results tomorrow and if sleep apnea is present, we will prescribe CPAP. Her sleep evaluation was done in [place] in [place] at the [facility] and we may be only get machine adjuster leader case trim to assist us in procuring those sleep study results. That would certainly be very helpful. Current Visit: Yes (2) Hypertension Status: Chronic Assessment and plan: The prevalence rate for obstructive sleep apnea patients with hypertension is 35 %. That rate can be as high as 80% in patients who require 4 or more medications for blood pressure control. Current Visit: Yes (3) Diabetes Status: Chronic Assessment and plan: The prevalence rate for obstructive sleep apnea in patients with type 2 diabetes can be as high as 86%. Those patients with moderate to severe obstructive sleep apnea are at a greater risk for diabetic nephropathy and neuropathy. Compliance with CPAP therapy for these patients can lead to improvement in glycemic control and improvement in insulin sensitivity. Current Visit: Yes Qualifiers: Diabetes mellitus type: type 2 History of Present Illness Chief complaint: Obstructive sleep apnea History of present illness: Ms. Brooks is a 51 year old female admitted with multiple health problems that included atypical chest pain and shortness of breath. She has chronic kidney disease and has artery had a fistula placed in anticipation of dialysis in the future. She recently was evaluated for sleep apnea in [place] and was diagnosed with obstructive sleep apnea but has not received a CPAP device as of yet. This evaluation was done in the past month and she is uncertain of the severity of her diagnosis. She is now moved here and does continue to have symptoms of snoring and abnormal breathing during sleep. In addition to her snoring and abnormal breathing during sleep, she does have some symptoms of fatigue and unrefreshing sleep. Home Medications Medication Instructions Recorded Confirmed Type Albuterol Sulfate [Ventolin HFA] 2 puff INH Q4HR 03/21/17 03/21/17 History Atorvastatin [Lipitor] 40 mg PO DAILY 03/21/17 03/21/17 History Bumetanide 1 mg PO BID 03/21/17 03/21/17 History Citalopram [CeleXA] 10 mg PO DAILY 03/21/17 03/21/17 History Divalproex [Depakote] 250 mg PO BEDTIME 03/21/17 03/21/17 History Ergocalciferol (Vitamin D2) 50,000 unit PO Q7DAY 03/21/17 03/21/17 History [Vitamin D2] Fluticasone 50 Mcg Nasal [place] 2 sprays BOTH NARES DAILY 03/21/17 03/21/17 History [Flonase Nasal [place]] Hydrocodone/Acetaminophen [[place] 1 each PO BID PRN 03/21/17 03/21/17 History 10-325 Tablet] Hydroxychloroquine [Plaquenil] 200 mg PO DAILY 03/21/17 03/21/17 History Levothyroxine Tab [Synthroid Tab] 75 mcg PO DAILY@0700 03/21/17 03/21/17 History Metoprolol Succinate 100 mg PO DAILY 03/21/17 03/21/17 History NIFEdipine [Nifedipine ER] 30 mg PO DAILY 03/21/17 03/21/17 History Pantoprazole Tab [Protonix Tab] 40 mg PO DAILY 03/21/17 03/21/17 History Zolpidem [Ambien] 10 mg PO BEDTIME PRN 03/21/17 03/21/17 History buPROPion HCl [Bupropion HCl Sr] 150 mg PO DAILY 03/21/17 03/21/17 History predniSONE TAB [PredniSONE] 5 mg PO DAILY 03/21/17 03/21/17 History Allergies Allergy/AdvReac Type Severity Reaction Status Date / Time lisinopril Allergy Swelling Verified 03/21/17 09:20 of Lip/Tongue/Throat metronidazole [From Flagyl] Allergy RASH Verified 03/21/17 09:20 Review of systems: Otherwise unremarkable from a sleep medicine standpoint. Exam (Pulmonay) H&P - Constitutional Vitals: Period Temp Pulse Resp BP Sys/Enciso Pulse Ox Last 24 Hr 97.2 F-98.5 F 68-87 18-22 126-174/75-123 90-100 Exam: She is alert and responsive. Pupils equal round reactive to light and accommodation. Extraocular movements are intact. Oropharynx with a class III Mallampati exam. Neck is supple without adenopathy or thyromegaly. No supraclavicular adenopathy is noted. Chest with symmetrical breath sounds without focal wheeze or rhonchi. Cardiac exam reveals regular rhythm without murmur or gallop. Abdomen obese nontender without palpable hepatosplenomegaly or mass. Extremities are without significant clubbing or edema. Neurologically , she is grossly intact. Medical,Surgical,& Family Hx - Medical History Cardio: History of: Hypertension Psychological: History of: Anxiety Disorders, Depression Endocrine: History of: Diabetes Mellitus (NIDDM), Dyslipidemia, Thyroid Disorder Rheumatology: History of;: Gout, Systemic Lupus Erythematosus Respiratory: History of: Obstructive Sleep Apnea Renal: History of: Renal Failure Gastrointestinal: History of: GERD Other: No history of: Cancer - Surgical History Cardiac Surgeries: Sugical HX of: Cardiac Catheterization Abdominal Surgeries: Patient denies: Appendectomy, Cholecystectomy, Colonoscopy, EGD Reproductive Surgeries: Surgical HX of;: Tubal Ligation - Family History Family History: Reports;: Family Diabetes (MOTHER, FATHER), Family Hypertension (FATHER) Denies;: Family Cancer, Family Heart Disease, Family Stroke - Social History Smoking Status: Former smoker Frequency of Alcohol Use: None Type of Drug Use: None Results - Labs CBC & BMP: 03/22/17 00:53 03/22/17 00:53 Lab Results: I have reviewed the past 24 hour labs
--- NOTE | 2017-03-22 19:23 | Nephrology Progress Note ---
Nephrology - PN: Subj Interval history: Patient is resting comfortably no acute changes. No shortness of breath. Serum creatinine stable at 3.7. Exam (PN)-Nephrology - Vital Signs Vital signs: Period Temp Pulse Resp BP Sys/Enciso Pulse Ox Last 24 Hr 97.2 F-98.5 F 68-87 18-22 126-174/75-123 90-100 - General Appearance General appearance: well-developed, well-nourished EENT: ATNC Neck: supple Respiratory: clear Cardiology: regular rate, regular rhythm Gastrointestinal: normoactive bowel sounds, no tenderness Integumentary: no rash Neurologic: alert and oriented x3, CN 3-12 intact Musculoskeletal: no clubbing Psychiatric: mood/affect appropriate, cooperative - Lab 03/22/17 00:53 03/22/17 00:53 Most recent lab results Calcium 8.8 MG/DL (8.5-10.1) 03/22/17 00:53 Magnesium 1.5 MG/DL (1.8-2.4) L 03/22/17 00:53 Assessment and Plan (1) Chronic kidney disease Status: Chronic Assessment and plan: Chronic kidney disease due to hypertension diabetes and lupus. Patient with a fistula in place. History of NSAID use. Recent history of tobacco use. Current Visit: Yes Qualifiers: Chronic kidney disease stage: stage 3 (moderate) Qualified Code(s): N18.3 - Chronic kidney disease, stage 3 (moderate) (2) Back pain Status: Chronic Current Visit: Yes Qualifiers: Back pain location: low back pain (3) Diabetes Status: Chronic Current Visit: Yes Qualifiers: Diabetes mellitus type: type 2 (4) Former tobacco use Status: Chronic Current Visit: Yes (5) Lupus Status: Chronic Assessment and plan: restart prednisone 10mg daily Current Visit: Yes
[2017-03-22] MEDS: DIVALPROEX 250 MG TABLET PO SCH (20:56)
[2017-03-22] MEDS: ZALEPLON 5 MG CAPSULE PO PRN (20:56)
[2017-03-23] MEDS: ALBUTEROL 2.5 MG/3 ML NEB RESP TX SCH ×6 (03:21→23:30)
[2017-03-23] MEDS: LEVOTHYROXINE 100 MCG TABLET PO SCH (06:33)
[2017-03-23] MEDS ORDERED: LEVOTHYROXINE 75 MCG TABLET PO SCH (07:00)
--- NOTE | 2017-03-23 08:53 | Cardiology Progress Note ---
Cardiology - PN: Subj Interval history: Cardiology note No pain. Telemetry has been benign. Blood pressure 144/82 O2 sat 95% on 2 L cannula. Regular rhythm no murmur Decreased breath sounds but clear abdomen benign. AV fistula left arm with bruit Normal Lexiscan cardiac stress test. Ejection fraction 64%. This is a low risk scan. Patient reassured. Echo Doppler showed ejection fraction of 60% with LVH, mitral valve sclerosis, aortic valve sclerosis, normal RV function, mild TR PA pressure 40 and no effusion Plan HST BP meds Home soon Exam (Progress Note) - Constitutional Vitals: Period Temp Pulse Resp BP Sys/Enciso Pulse Ox Last 24 Hr 97.1 F-98.5 F 80-97 14-22 123-174/68-123 93-100 Result/EKG - Labs CBC & BMP: 03/22/17 00:53 03/22/17 00:53 Labs: Laboratory Results - last 24 hr 03/22/17 03/22/17 03/22/17 09:45 11:00 15:46 INR 0.9 PT Patient/Control Mix 10.0 POC Glucose 125 H Pleural pH Pleural WBC 131 Pleural RBC [address] 100 Pleural Neutrophils 18 Pleural Lymphocytes 79 Pleural Monocytes 1 Pleural Eosinophils 2 Pleural Diff Comment Pleural Albumin Pleural LDH Pleural Glucose 03/22/17 03/22/17 03/22/17 19:35 Unknown Unknown INR PT Patient/Control Mix POC Glucose 223 H Pleural pH Pleural WBC Pleural RBC Pleural Tot Cell Ct Pleural Neutrophils Pleural Lymphocytes Pleural Monocytes Pleural Eosinophils Pleural Diff Comment Pleural Albumin 1.7 Pleural LDH Pleural Glucose 94 03/22/17 03/22/17 03/23/17 Unknown Unknown 07:21 INR PT Patient/Control Mix POC Glucose 81 Pleural pH 8.00 Pleural WBC Pleural RBC Pleural Tot Cell Ct Pleural Neutrophils Pleural Lymphocytes Pleural Monocytes Pleural Eosinophils Pleural Diff Comment Pleural Albumin Pleural LDH 127 Pleural Glucose
--- NOTE | 2017-03-23 09:33 | Nephrology Progress Note ---
Nephrology - PN: Subj Interval history: Patient is resting comfortably no acute changes. No shortness of breath. Serum creatinine stable at 3.7. 03/23/2017. Patient is resting comfortably no acute changes. Serum creatinine stable. Continue with prednisone 10 mg. Patient to follow me on an outpatient in 3 weeks with a BMP. Exam (PN)-Nephrology - Vital Signs Vital signs: Period Temp Pulse Resp BP Sys/Enciso Pulse Ox Last 24 Hr 97.1 F-98.5 F 80-97 14-22 123-174/68-123 93-100 - General Appearance General appearance: well-developed, well-nourished EENT: ATNC Neck: supple Respiratory: clear Cardiology: regular rate, regular rhythm Gastrointestinal: normoactive bowel sounds, no tenderness Integumentary: no rash Neurologic: alert and oriented x3 Musculoskeletal: no clubbing Psychiatric: mood/affect appropriate, cooperative - Lab 03/22/17 00:53 03/22/17 00:53 Most recent lab results Calcium 8.8 MG/DL (8.5-10.1) 03/22/17 00:53 Magnesium 1.5 MG/DL (1.8-2.4) L 03/22/17 00:53 Assessment and Plan (1) Chronic kidney disease Status: Chronic Assessment and plan: Chronic kidney disease due to hypertension diabetes and lupus. Patient with a fistula in place. History of NSAID use. Recent history of tobacco use. Current Visit: Yes Qualifiers: Chronic kidney disease stage: stage 3 (moderate) Qualified Code(s): N18.3 - Chronic kidney disease, stage 3 (moderate) (2) Back pain Status: Chronic Current Visit: Yes Qualifiers: Back pain location: low back pain (3) Diabetes Status: Chronic Current Visit: Yes Qualifiers: Diabetes mellitus type: type 2 (4) Former tobacco use Status: Chronic Current Visit: Yes (5) Lupus Status: Chronic Assessment and plan: Continue prednisone 10mg daily Current Visit: Yes
[2017-03-23] MEDS: INSULIN LISPRO 100 UNIT/ML SUBCUT SCH ×4 (10:05→22:07)
[2017-03-23] MEDS: hydrALAZINE 25 MG TABLET PO SCH ×3 (10:07→22:02)
[2017-03-23] MEDS: CITALOPRAM 20 MG TABLET PO SCH (10:07)
[2017-03-23] MEDS: BUMETANIDE 1 MG TABLET PO SCH ×2 (10:07→22:02)
[2017-03-23] MEDS: ISOSORBIDE MONONITRATE 30 MG TABLET PO SCH (10:08)
[2017-03-23] MEDS: FLUTICASONE 50 MCG NASAL SPRAY 16 GM BOTTLE BOTH NARES SCH (10:08)
[2017-03-23] MEDS: HYDROXYCHLOROQUINE 200 MG TABLET PO SCH (10:09)
[2017-03-23] MEDS: predniSONE 10 MG TABLET PO SCH (10:09)
[2017-03-23] MEDS: PANTOPRAZOLE 40 MG TABLET PO SCH (10:09)
[2017-03-23] MEDS: ATORVASTATIN 40 MG TABLET PO SCH (10:09)
[2017-03-23] MEDS: LEVOFLOXACIN INJ 250 MG in PREMIX 1 EACH IV SCH (10:10)
[2017-03-23] MEDS: METOPROLOL SUCCINATE XL 100 MG TABLET PO SCH (10:10)
[2017-03-23] MEDS: DOCUSATE SODIUM 100 MG CAPSULE PO PRN (10:13)
--- NOTE | 2017-03-23 10:36 | Pulmonology Progress Note ---
Pulmonary - PN: Subj Interval history: Ms. Brooks is a 51 year old black female that has a history of having hypertension, diabetes, chronic renal disease, GE reflux and possible lupus. She had been followed in [place] and recently moved to [place]. Her chronic renal failure was followed by nephrology and she was getting prepared for dialysis. She recently had a shunt placed in her arm. She came to the emergency room because of complaints of dizziness along with nausea and vomiting and some back pain. She was having some vague chest pain. She may have had some mild shortness of breath. She says she has been swelling a little bit. She has been feeling better overall. She was found to have a left pleural effusion and had a thoracentesis today. A small amount of fluid was removed that looks transudative. Overall she says her breathing has been better since admission. She has been a lifelong smoker and says she quit several weeks ago. She says she has inhalers but does not have to use them regularly. She has been taking prednisone for her kidneys and lupus and possibly breathing. She says she ran out of medicines recently. The patient says he is breathing better but has some dizziness. She does not want to do much activity. She did have a home sleep study done last night. She does not seem to be short of breath at rest. She is probably not going to require dialysis at present. Exam (Progress Note) - Constitutional Vitals: Period Temp Pulse Resp BP Sys/Enciso Pulse Ox Last 24 Hr 97.1 F-98.5 F 79-97 14-22 123-174/68-123 93-100 Exam: General appearance: no acute distress, over weight, she is lying flat in bed and looks comfortable. - Head Head exam: Present: normal inspection, normocephalic - Eye Eye exam: Present: EOMI. Absent: scleral icterus Pupils: Absent: OLGA - ENT ENT exam: Present: normal exam - Neck Neck exam: Absent: lymphadenopathy, thyromegaly - Respiratory Respiratory exam: Present: She has good breath sounds bilaterally is moving air fairly well. She has some minimal crackles in the bases. - Cardiovascular Cardiovascular exam: Present: regular rate and rhythm. Absent: gallop, systolic murmur - GI/Abdominal GI/Abdominal exam: Present: soft. Absent: distended, organomegaly, tenderness - Extremities Exam Extremities exam: Present: edema (She has mild edema of the legs.). Absent: calf tenderness - Neurological Exam Neurological exam: Present: alert, oriented X3, CN II-XII intact - Psychiatric Psychiatric exam: Present: normal affect, normal mood - Skin Skin exam: Present: warm, dry Results - Labs CBC & BMP: 03/22/17 00:53 03/22/17 00:53 Assessment and Plan (1) Chest pain Status: Acute Assessment and plan: Patient came in with some atypical chest pain and does not appear to have any angina. She did have a previous negative catheterization in [place]. Current Visit: Yes (2) Renal failure Status: Acute Assessment and plan: Her creatinine is 3.7 and at some point in the future she may need dialysis. She is not going to require dialysis at present Current Visit: Yes Qualifiers: Renal failure chronicity: acute on chronic Chronic kidney disease stage: stage 4 (severe) (3) Hypertension Status: Chronic Assessment and plan: Her blood pressure medicines will be adjusted. Current Visit: Yes (4) Diabetes Status: Chronic Assessment and plan: Her diabetes will be monitored. Her glucose is 81 earlier. Current Visit: Yes Qualifiers: Diabetes mellitus type: type 2 (5) Former tobacco use Status: Chronic Assessment and plan: The patient says she stopped smoking a month ago. Hopefully she will stay off cigarettes. She could have a component of mild COPD. Current Visit: Yes (6) Lupus Status: Chronic Assessment and plan: She has no signs of lupus at present and will be observed. Current Visit: Yes (7) Hypothyroidism Status: Acute Assessment and plan: Patient's TSH is 6.5. Her thyroid may need to be adjusted. Current Visit: Yes (8) WALLACE (obstructive sleep apnea) Status: Acute Assessment and plan: She is being evaluated for sleep apnea. She had a home study last night. Current Visit: Yes (9) Pleural effusion Status: Acute Assessment and plan: Patient had a small left effusion drained looks like it may be a transudate. She does have some fluid retention because of her cardiac status and renal insufficiency. Will repeat another chest x-ray tomorrow. Current Visit: Yes
[2017-03-23] MEDS: ONDANSETRON 4 MG/2 ML VIAL IV PRN (11:10)
--- NOTE | 2017-03-23 12:29 | Hospitalist Progress Note ---
Assessment and Plan (1) Chest pain Status: Acute Assessment and plan: Normal Lexiscan cardiac stress test. Ejection fraction 64%. This is a low risk scan. Patient reassured. Echo Doppler showed ejection fraction of 60% with LVH, mitral valve sclerosis, aortic valve sclerosis, normal RV function, mild TR PA pressure 40 and no effusion Plan continue current care Current Visit: Yes (2) Hypertension Status: Chronic Assessment and plan: Increase Isosorbide to 15mg bid, follow response Current Visit: Yes (3) Chronic kidney disease Status: Chronic Assessment and plan: Nephrology is following. Patient has a fistula in place. She was previously being worked up for future dialysis at her clinic Current Visit: Yes Qualifiers: Chronic kidney disease stage: stage 3 (moderate) Qualified Code(s): N18.3 - Chronic kidney disease, stage 3 (moderate) (4) Lupus Status: Chronic Assessment and plan: on hydroxychloroquin and steroids Current Visit: Yes (5) Diabetes Status: Chronic Assessment and plan: A1c-6.3, continue current regime. Current Visit: Yes Qualifiers: Diabetes mellitus type: type 2 (6) Dyslipidemia Status: Acute Assessment and plan: continue with statins Current Visit: Yes (7) Hypothyroidism Status: Acute Assessment and plan: continue with supplements, synthroid has been increased to 100mcg due to high TSH, follow response Current Visit: Yes (8) WALLACE (obstructive sleep apnea) Status: Acute Assessment and plan: outpatient follow up Current Visit: Yes (9) Pleural effusion Status: Acute Assessment and plan: CT showed Small to medium-sized left-sided pleural effusion without loculation. Uniform linear pleural thickening is also suggested,atelectasis and mild bronchial wall thickening involving the left lower lung field.She is s/p tap-transudative. Plan Continue with diuretics Current Visit: Yes (10) Dizziness Status: Acute Assessment and plan: CT head was negative, she is orthostatic, needs to get up slowly from a sitting position. Will try meclizine prn Current Visit: Yes (11) Anemia Status: Acute Assessment and plan: will start Fe supplements plus stool softners Current Visit: Yes Hospitalist: Subjective Interval history: Patient was sitting up in bed. She complains of some dizziness and was orthostatic.She also wanted something for constipation Exam - Constitutional Vitals: Period Temp Pulse Resp BP Sys/Enciso Pulse Ox Last 24 Hr 97.1 F-98.5 F 79-97 14-20 123-163/68-94 86-100 General appearance: no acute distress - Respiratory Respiratory exam: Present: decreased breath sounds - Cardiovascular Cardiovascular exam: Present: regular rate and rhythm - GI/Abdominal GI/Abdominal exam: Present: normal bowel sounds - Extremities Exam Extremities exam: Present: normal inspection - Neurological Exam Neurological exam: Present: alert, oriented X3 Results - Labs CBC & BMP: 03/22/17 00:53 03/22/17 00:53 Lab Results: I have reviewed the past 24 hour labs
[2017-03-23] MEDS: IRON (CARBONYL) 45 MG TABLET PO SCH ×2 (15:16→22:01)
[2017-03-23] MEDS: BISACODYL 5 MG TABLET PO PRN ×2 (15:16→22:06)
[2017-03-23] MEDS: ENOXAPARIN 30 MG/0.3 ML SYRINGE SUBCUT SCH (15:18)
--- NOTE | 2017-03-23 17:28 | Sleep Medicine Progress Note ---
Assessment and Plan (1) WALLACE (obstructive sleep apnea) Status: Acute Assessment and plan: This patient indeed has severe obstructive sleep apnea and will be begun on therapy with auto titration CPAP with follow-up of her results. Ideally, such severe sleep apnea should be followed up within lab titration to confirm resolution of such severe hypoxia with CPAP. Current Visit: Yes (2) Hypertension Status: Chronic Current Visit: Yes (3) Diabetes Status: Chronic Current Visit: Yes Qualifiers: Diabetes mellitus type: type 2 Sleep Medicine Subjective Interval history: Patient did undergo home sleep testing last night. This revealed severe obstructive sleep apnea with a respiratory event index of 88.5 with O2 desaturation into the 60s. She spent 85 minutes of her sleep with O2 sats of less than 90%. I reviewed her sleep study findings with her to understanding. We will start her on auto titration CPAP tonight and prescription was written for auto CPAP at discharge. She will be followed up daily while hospitalized to monitor her response and deal with any mask fit issues. Exam (Progress Note) - Constitutional Vitals: Period Temp Pulse Resp BP Sys/Enciso Pulse Ox Last 24 Hr 97.1 F-98.3 F 79-97 14-20 123-163/68-94 86-99 Results - Labs CBC & BMP: 03/22/17 00:53 03/22/17 00:53 Lab Results: I have reviewed the past 24 hour labs
[2017-03-23] MEDS ORDERED: MECLIZINE 25 MG TABLET PO PRN (19:12)
[2017-03-23] MEDS ORDERED: ISOSORBIDE MONONITRATE 30 MG TABLET PO SCH (21:00)
[2017-03-23] MEDS ORDERED: ISOSORBIDE DINITRATE SR 40 MG TABLET PO SCH (21:00)
[2017-03-23] MEDS: ZALEPLON 5 MG CAPSULE PO PRN (22:01)
[2017-03-23] MEDS: DIVALPROEX 250 MG TABLET PO SCH (22:02)
[2017-03-23] MEDS: DOCUSATE SODIUM 100 MG CAPSULE PO SCH (22:02)
[2017-03-23] MEDS: ISOSORBIDE DINITRATE 10 MG TABLET PO SCH (22:06)
[2017-03-24] MEDS: ALBUTEROL 2.5 MG/3 ML NEB RESP TX SCH ×6 (03:03→23:32)
[2017-03-24] MEDS: LEVOTHYROXINE 100 MCG TABLET PO SCH (06:21)
--- NOTE | 2017-03-24 08:36 | XRay Report ---
XR chest 2V Date: 03/24/2017 4:00 AM History: Left pleural effusion Comparison: 03/22/2017 Technique: PA and lateral chest Findings: The heart is normal in size with stable right venous catheter. Minimally reduced parenchymal findings in the lungs with stable small left pleural effusion. No evidence of pneumothorax. Degenerative changes are noted with prior cholecystectomy. Impression: No pneumothorax. Reduced infiltration/edema with residual small left pleural effusion. PROCEDURE INTERPRETED AT [facility] DEPARTMENT OF RADIOLOGY Final Report Signed by: Dr. Ally Luevano
[2017-03-24] MEDS: INSULIN LISPRO 100 UNIT/ML SUBCUT SCH ×5 (08:48→20:58)
[2017-03-24] MEDS: LEVOFLOXACIN INJ 250 MG in PREMIX 1 EACH IV SCH (08:49)
[2017-03-24] MEDS: hydrALAZINE 25 MG TABLET PO SCH (08:49)
[2017-03-24] MEDS: BUMETANIDE 1 MG TABLET PO SCH ×2 (08:50→20:58)
[2017-03-24] MEDS: CITALOPRAM 20 MG TABLET PO SCH (08:50)
[2017-03-24] MEDS: DOCUSATE SODIUM 100 MG CAPSULE PO SCH ×2 (08:51→20:58)
[2017-03-24] MEDS: IRON (CARBONYL) 45 MG TABLET PO SCH ×2 (08:51→20:58)
[2017-03-24] MEDS: ISOSORBIDE DINITRATE 10 MG TABLET PO SCH ×2 (08:52→20:58)
[2017-03-24] MEDS: FLUTICASONE 50 MCG NASAL SPRAY 16 GM BOTTLE BOTH NARES SCH (08:52)
[2017-03-24] MEDS: HYDROXYCHLOROQUINE 200 MG TABLET PO SCH (08:53)
[2017-03-24] MEDS: PANTOPRAZOLE 40 MG TABLET PO SCH (08:53)
[2017-03-24] MEDS: predniSONE 10 MG TABLET PO SCH (08:53)
[2017-03-24] MEDS: ATORVASTATIN 40 MG TABLET PO SCH (08:53)
[2017-03-24] MEDS: METOPROLOL SUCCINATE XL 100 MG TABLET PO SCH (08:54)
--- NOTE | 2017-03-24 09:24 | Pulmonology Progress Note ---
Pulmonary - PN: Subj Interval history: Ms. Brooks is a 51 year old black female that has a history of having hypertension, diabetes, chronic renal disease, GE reflux and possible lupus. She had been followed in [place] and recently moved to [place]. Her chronic renal failure was followed by nephrology and she was getting prepared for dialysis. She recently had a shunt placed in her arm. She came to the emergency room because of complaints of dizziness along with nausea and vomiting and some back pain. She was having some vague chest pain. She may have had some mild shortness of breath. She says she has been swelling a little bit. She has been feeling better overall. She was found to have a left pleural effusion and had a thoracentesis today. A small amount of fluid was removed that looks transudative. Overall she says her breathing has been better since admission. She has been a lifelong smoker and says she quit several weeks ago. She says she has inhalers but does not have to use them regularly. She has been taking prednisone for her kidneys and lupus and possibly breathing. She says she ran out of medicines recently. The patient says she is feeling better today. She says she did use CPAP last night. She is sitting up and looks more comfortable. She feels like her breathing is doing okay. She says her dizziness is better and she walked to the bathroom. She is not having any chest pain or pleurisy. Her chest x-ray still shows a small left pleural effusion. Her urine output has been fair. Her weight is a little better. Exam (Progress Note) - Constitutional Vitals: Period Temp Pulse Resp BP Sys/Enciso Pulse Ox Last 24 Hr 97.7 F-98.9 F 80-88 16-20 123-176/83-97 86-99 Exam: General appearance: no acute distress, over weight, she is sitting up and looks more comfortable. - Head Head exam: Present: normal inspection, normocephalic - Eye Eye exam: Present: EOMI. Absent: scleral icterus Pupils: Absent: OLGA - ENT ENT exam: Present: normal exam - Neck Neck exam: Absent: lymphadenopathy, thyromegaly - Respiratory Respiratory exam: Present: She has good breath sounds bilaterally is moving air fairly well. She still has some crackles in the left base. - Cardiovascular Cardiovascular exam: Present: regular rate and rhythm. Absent: gallop, systolic murmur - GI/Abdominal GI/Abdominal exam: Present: soft. Absent: distended, organomegaly, tenderness - Extremities Exam Extremities exam: Present: Her leg swelling is better overall. - Neurological Exam Neurological exam: Present: alert, oriented X3, CN II-XII intact, no focal deficits - Psychiatric Psychiatric exam: Present: normal affect, normal mood - Skin Skin exam: Present: warm, dry Results - Labs CBC & BMP: 03/22/17 00:53 03/22/17 00:53 - Diagnostic Findings Procedure: Chest x-ray: image reviewed by me, report reviewed by me (Chest x- ray still shows small left effusion.) Assessment and Plan (1) Chest pain Status: Acute Assessment and plan: Patient came in with some atypical chest pain and does not appear to have any angina. She did have a previous negative catheterization in [place]. Her chest pain has resolved. Current Visit: Yes (2) Renal failure Status: Acute Assessment and plan: Her creatinine is 3.7 and at some point in the future she may need dialysis. She is not going to require dialysis at present Current Visit: Yes Qualifiers: Renal failure chronicity: acute on chronic Chronic kidney disease stage: stage 4 (severe) (3) Hypertension Status: Chronic Assessment and plan: Her blood pressure medicines will be adjusted. She appears to be hemodynamically stable at present. Current Visit: Yes (4) Diabetes Status: Chronic Assessment and plan: Her diabetes will be monitored. Her glucose is 66 earlier. Current Visit: Yes Qualifiers: Diabetes mellitus type: type 2 (5) Former tobacco use Status: Chronic Assessment and plan: The patient says she stopped smoking a month ago. Hopefully she will stay off cigarettes. She could have a component of mild COPD. Current Visit: Yes (6) Lupus Status: Chronic Assessment and plan: She has no signs of lupus at present and will be observed. Current Visit: Yes (7) Hypothyroidism Status: Acute Assessment and plan: Patient's TSH is 6.5. Her Synthroid has been adjusted. Current Visit: Yes (8) WALLACE (obstructive sleep apnea) Status: Acute Assessment and plan: She has significant sleep apnea and did use CPAP last night. Current Visit: Yes (9) Pleural effusion Status: Acute Assessment and plan: Patient had a small left effusion that was a transudative and she still has a small effusion. Will just watch this for now. Current Visit: Yes
--- NOTE | 2017-03-24 10:12 | Cardiology Progress Note ---
Cardiology - PN: Subj Interval history: Cardiology note Feels better. No dizziness. Telemetry has demonstrated steady sinus rhythm without ectopy or pauses. Blood pressure 154/80. O2 sat 98 on room air Regular rhythm no murmur or gallop Clear lungs Abdomen benign No leg edema Functioning AV fistula with bruit left upper arm Normal Lexiscan cardiac stress test EF 64% Plan Home okay with me Increase hydralazine 50 mg [address] Nicole to arrange for CPAP machine Office visit with EKG in 2 weeks Exam (Progress Note) - Constitutional Vitals: Period Temp Pulse Resp BP Sys/Enciso Pulse Ox Last 24 Hr 97.7 F-98.9 F 80-90 16-20 123-176/83-97 86-99 Result/EKG - Labs CBC & BMP: 03/22/17 00:53 03/22/17 00:53 Labs: Laboratory Results - last 24 hr 03/23/17 03/23/17 03/23/17 11:11 15:38 20:07 POC Glucose 159 H 148 H 155 H 03/24/17 07:56 POC Glucose 66 L
--- NOTE | 2017-03-24 12:40 | Sleep Medicine Progress Note ---
Assessment and Plan (1) WALLACE (obstructive sleep apnea) Status: Acute Assessment and plan: Continue with auto titration CPAP and follow-up results. Current Visit: Yes (2) Hypertension Status: Chronic Current Visit: Yes (3) Diabetes Status: Chronic Current Visit: Yes Qualifiers: Diabetes mellitus type: type 2 Sleep Medicine Subjective Interval history: Patient did sleep with CPAP last night for over 6 hours and tolerated it well. She still had significant sleep apnea despite auto titration CPAP with an AHI of over 26. We will continue to work with her on this tonight and follow-up response tomorrow. She continues to have such poorly uncontrolled sleep apnea, she will certainly need formal re-titration in the sleep lab after discharge and may end up on BiPAP therapy. Exam (Progress Note) - Constitutional Vitals: Period Temp Pulse Resp BP Sys/Enciso Pulse Ox Last 24 Hr 97.7 F-98.9 F 79-90 16-20 123-176/83-97 93-100 Exam: She is alert and responsive in no acute distress. She appears better today overall. Results - Labs CBC & BMP: 03/22/17 00:53 03/22/17 00:53 Lab Results: I have reviewed the past 24 hour labs
--- NOTE | 2017-03-24 12:43 | Hospitalist Progress Note ---
Assessment and Plan (1) Chest pain Status: Acute Assessment and plan: Normal Lexiscan cardiac stress test. Ejection fraction 64%. This is a low risk scan. Patient reassured. Echo Doppler showed ejection fraction of 60% with LVH, mitral valve sclerosis, aortic valve sclerosis, normal RV function, mild TR PA pressure 40 and no effusion Plan continue current care Current Visit: Yes (2) Hypertension Status: Chronic Assessment and plan: stable Current Visit: Yes (3) Chronic kidney disease Status: Chronic Assessment and plan: Nephrology is following. Patient has a fistula in place. She was previously being worked up for future dialysis at her clinic. looks like she will not require dialysis yet. Current Visit: Yes Qualifiers: Chronic kidney disease stage: stage 3 (moderate) Qualified Code(s): N18.3 - Chronic kidney disease, stage 3 (moderate) (4) Lupus Status: Chronic Assessment and plan: on hydroxychloroquin and steroids Current Visit: Yes (5) Diabetes Status: Chronic Assessment and plan: A1c-6.3, continue current regime. Current Visit: Yes Qualifiers: Diabetes mellitus type: type 2 (6) Dyslipidemia Status: Acute Assessment and plan: continue with statins Current Visit: Yes (7) Hypothyroidism Status: Acute Assessment and plan: continue with supplements, synthroid has been increased to 100mcg due to high TSH, follow response Current Visit: Yes (8) WALLACE (obstructive sleep apnea) Status: Acute Assessment and plan: Sleep MD is following and working on her CPAP Current Visit: Yes (9) Pleural effusion Status: Acute Assessment and plan: CT showed Small to medium-sized left-sided pleural effusion without loculation. Uniform linear pleural thickening is also suggested,atelectasis and mild bronchial wall thickening involving the left lower lung field.She is s/p tap-transudative. Plan Continue with diuretics Current Visit: Yes (10) Dizziness Status: Acute Assessment and plan: Improving. CT head was negative, she is orthostatic, needs to get up slowly from a sitting position. Continue meclizine prn Current Visit: Yes (11) Anemia Status: Acute Assessment and plan: due to renal failure. Continue Fe supplements plus stool softners Current Visit: Yes Hospitalist: Subjective Interval history: Patient seen sitting up on a chair. She states she feels better. DC planning in progress.Hopefully in am Exam - Constitutional Vitals: Period Temp Pulse Resp BP Sys/Enciso Pulse Ox Last 24 Hr 97.7 F-98.9 F 79-90 16-20 123-176/83-97 93-100 General appearance: no acute distress - Head Head exam: Present: normal inspection - Respiratory Respiratory exam: Present: clear to auscultation bilaterally - Cardiovascular Cardiovascular exam: Present: regular rate and rhythm - GI/Abdominal GI/Abdominal exam: Present: normal bowel sounds - Neurological Exam Neurological exam: Present: alert, oriented X3 Results - Labs CBC & BMP: 03/22/17 00:53 03/22/17 00:53 Lab Results: I have reviewed the past 24 hour labs
[2017-03-24] MEDS: ENOXAPARIN 30 MG/0.3 ML SYRINGE SUBCUT SCH (14:47)
--- NOTE | 2017-03-24 18:16 | Pathology Report from [facility] ---
[facility] [place] [id number] PATIENT NAME : Helena Brooks ORDERING DR : Ish Delgadillo MD CLINICAL HX: Pleural Effusion POST-OP DX: Same SPECIMEN INFO: Fluid,Pleural,Left - 200 mls bloody, cloudy CLASS: I CLASS COMMENTS: Marked blood, acute inflammation, few mesothelial cells.CELL BLOCK: Same CLASS LEGEND: CLASS 0 Material inadequate for diagnosis because of (see comment) CLASS I Absence of atypical or abnormal cells CLASS II Atypical Cytology but no evidence of malignancy CLASS III Cytology suggestive of but not conclusive for malignancy CLASS IV Cytology strongly suggestive of malignancy CLASS V Cytology conclusive for malignancy COLLECTED DATE: 03/22/2017 [facility] [place] DATE: 03/23/2017 ELECTRONICALLY SIGNED BY: Ayana Norris III, M.D. 03/23/2017 - 9:03:25 LM
[2017-03-24] MEDS: DIVALPROEX 250 MG TABLET PO SCH (20:58)
[2017-03-24] MEDS: ZALEPLON 5 MG CAPSULE PO PRN (20:58)
[2017-03-25] MEDS: ALBUTEROL 2.5 MG/3 ML NEB RESP TX SCH ×3 (02:51→10:39)
[2017-03-25] MEDS: LEVOTHYROXINE 100 MCG TABLET PO SCH (06:08)
[2017-03-25] MEDS: INSULIN LISPRO 100 UNIT/ML SUBCUT SCH ×3 (08:55→16:51)
[2017-03-25] MEDS: LEVOFLOXACIN INJ 250 MG in PREMIX 1 EACH IV SCH (08:56)
[2017-03-25] MEDS: CITALOPRAM 20 MG TABLET PO SCH (09:00)
[2017-03-25] MEDS: BUMETANIDE 1 MG TABLET PO SCH (09:01)
[2017-03-25] MEDS: ISOSORBIDE DINITRATE 10 MG TABLET PO SCH (09:01)
[2017-03-25] MEDS: IRON (CARBONYL) 45 MG TABLET PO SCH (09:01)
[2017-03-25] MEDS: predniSONE 10 MG TABLET PO SCH (09:01)
[2017-03-25] MEDS: ATORVASTATIN 40 MG TABLET PO SCH (09:01)
[2017-03-25] MEDS: HYDROXYCHLOROQUINE 200 MG TABLET PO SCH (09:02)
[2017-03-25] MEDS: METOPROLOL SUCCINATE XL 100 MG TABLET PO SCH (09:02)
[2017-03-25] MEDS: PANTOPRAZOLE 40 MG TABLET PO SCH (09:02)
[2017-03-25] MEDS: DOCUSATE SODIUM 100 MG CAPSULE PO SCH (09:03)
[2017-03-25] MEDS: FLUTICASONE 50 MCG NASAL SPRAY 16 GM BOTTLE BOTH NARES SCH (09:03)
--- NOTE | 2017-03-25 09:15 | Cardiology Progress Note ---
Cardiology - PN: Subj Interval history: Cardiology note 51-year-old woman admitted with atypical chest pain hypertension and chronic renal failure. Feels much better. O2 sat 99% on room air. Blood pressure 146/90 in the right arm by me. Regular rhythm no murmur or gallop clear lungs. No leg edema Normal Lexiscan cardiac stress test Plan CPAP arranges per Dr. Nicole. Increase hydralazine 100 mg 3 times daily Office visit 2 weeks scheduled Home okay with me Exam (Progress Note) - Constitutional Vitals: Period Temp Pulse Resp BP Sys/Enciso Pulse Ox Last 24 Hr 97.1 F-98.8 F 75-98 16-20 134-167/81-99 95-100 Result/EKG - Labs CBC & BMP: 03/22/17 00:53 03/22/17 00:53 Labs: Laboratory Results - last 24 hr 03/24/17 03/24/17 03/24/17 11:04 16:21 20:56 POC Glucose 127 H 157 H 154 H 03/25/17 07:31 POC Glucose 66 L
--- NOTE | 2017-03-25 09:19 | Pulmonology Progress Note ---
Pulmonary - PN: Subj Interval history: Ms. Brooks is a 51 year old black female that has a history of having hypertension, diabetes, chronic renal disease, GE reflux and possible lupus. She had been followed in [place] and recently moved to [place]. Her chronic renal failure was followed by nephrology and she was getting prepared for dialysis. She recently had a shunt placed in her arm. She came to the emergency room because of complaints of dizziness along with nausea and vomiting and some back pain. She was having some vague chest pain. She may have had some mild shortness of breath. She says she has been swelling a little bit. She has been feeling better overall. She was found to have a left pleural effusion and had a thoracentesis today. A small amount of fluid was removed that looks transudative. Overall she says her breathing has been better since admission. She has been a lifelong smoker and says she quit several weeks ago. She says she has inhalers but does not have to use them regularly. She has been taking prednisone for her kidneys and lupus and possibly breathing. She says she ran out of medicines recently. The patient continues to do fairly well. She says she slept well with her CPAP. She feels like her breathing is okay. She is ambulating and has less dizziness. Overall she seems to be stable. She does have a small left effusion and this can be just watch for now. She should be able to go home soon Exam (Progress Note) - Constitutional Vitals: Period Temp Pulse Resp BP Sys/Enciso Pulse Ox Last 24 Hr 97.1 F-98.8 F 75-98 16-20 134-167/81-99 95-100 Exam: General appearance: no acute distress, over weight, she is sitting up and looks more comfortable. She is not short of breath with oxygen off. - Head Head exam: Present: normal inspection, normocephalic - Eye Eye exam: Present: EOMI. Absent: scleral icterus Pupils: Absent: OLGA - ENT ENT exam: Present: normal exam - Neck Neck exam: Absent: lymphadenopathy, thyromegaly - Respiratory Respiratory exam: Present: She has good breath sounds bilaterally is moving air fairly well. He has mild decreased breath sounds left base. She is not wheezing. - Cardiovascular Cardiovascular exam: Present: regular rate and rhythm. Absent: gallop, systolic murmur - GI/Abdominal GI/Abdominal exam: Present: soft. Absent: distended, organomegaly, tenderness - Extremities Exam Extremities exam: Present: Her leg swelling is better overall. - Neurological Exam Neurological exam: Present: alert, oriented X3, CN II-XII intact, no focal deficits - Psychiatric Psychiatric exam: Present: normal affect, normal mood - Skin Skin exam: Present: warm, dry Results - Labs CBC & BMP: 03/22/17 00:53 03/22/17 00:53 Assessment and Plan (1) Chest pain Status: Acute Assessment and plan: Patient came in with some atypical chest pain and does not appear to have any angina. She did have a previous negative catheterization in [place]. Her chest pain has resolved. Current Visit: Yes (2) Renal failure Status: Acute Assessment and plan: Her creatinine is 3.7 and at some point in the future she may need dialysis. She is not going to require dialysis at present Current Visit: Yes (3) Hypertension Status: Chronic Assessment and plan: Her blood pressure medicines will be adjusted. She appears to be hemodynamically stable at present. She seems to be tolerating medicines fairly well. Current Visit: Yes (4) Diabetes Status: Chronic Assessment and plan: Her diabetes will be monitored. Her glucose is 66 earlier. Current Visit: Yes (5) Former tobacco use Status: Chronic Assessment and plan: The patient says she stopped smoking a month ago. Hopefully she will stay off cigarettes. She could have a component of mild COPD. She seems to be breathing okay at present. Current Visit: Yes (6) Lupus Status: Chronic Assessment and plan: She has no signs of lupus at present and will be observed. Current Visit: Yes (7) Hypothyroidism Status: Acute Assessment and plan: Patient's TSH is 6.5. Her Synthroid has been adjusted. Current Visit: Yes (8) WALLACE (obstructive sleep apnea) Status: Acute Assessment and plan: She has significant sleep apnea and did use CPAP last night. She says she is doing better with CPAP. Current Visit: Yes (9) Pleural effusion Status: Acute Assessment and plan: Patient had a small left effusion that was a transudative and she still has a small effusion. Her shortness of breath is better. Her pleural fluid will just have to be watched. She can go home from my standpoint. Current Visit: Yes
--- NOTE | 2017-03-25 09:35 | Discharge Summary ---
<Arley Enamorado - Last Filed: 03/25/17 08:57> Hospital Course - Hospital Course Hospital Course: Ms. Brooks is a 51 yr old black female with a history of GERD, hypertension, diabetes, stage IV kidney disease, and lupus that presented to the ED on 03/21 with complaints of lower back pain, nausea, vomiting, dizziness and intermittent chest pain. Patient reported that the symptoms of lower back pain and dizziness had onset of a week prior however denies any chest pain has an onset of 2 days prior. Patient reported a sharp right-sided pain but denies any radiation. Patient reported that she just relocated from [place] to [place]. She also reported that she in the process of being worked up as an outpatient for possible dialysis at that time and has had a fistula placed. Significant labs on admission include a BUN and creatinine of 31/3.6 respectively an elevated troponin of 0.153. Patient was admitted to the hospitalist service for further evaluation and treatment. During the stay pt was seen by multiple services: cardiology, nephrology, pulmonology, and sleep medicine. Patient was started on gentle hydration and iron studies obtained. An echo was performed. EF of 60% with LVH, mitral valve sclerosis, aortic valve sclerosis, normal RV function, mild TR with PA pressure and no effusion. CT of head, chest, and lumbar sacral spine were also performed. CT head revealed 'low density in the periventricular white matter (usually attributable to chronic microvascular ischemia but can also be seen with demyelinating processes). CT chest showed 'small to medium sized left-sided pleural effusion without loculation' and 'uniform linear pleural thickening'. Cardiology evaluated patient for atypical chest pain. Suspected that troponin was raised trivially in the face of chronic renal failure. Cardiac enzymes were monitored and remained flat. Patient did undergo Lexiscan that was normal. Hydralazine was increased to TID daily. Nephrology evaluated patient. Monitored daily BMPs. Pulmonary saw patient for the small pleural effusion. Her pleural fluid is to be watched. Sleep medicine evaluated patient for possible WALLACE diagnosis. Pt. underwent home sleep testing in the hospital. Sleep test revealed 'severe obstructive sleep apnea with a respiratory event index of 88.5 with O2 desaturation into the 60s'. She was started on CPAP and also given a prescription for auto CPAP at discharge. Pt's condition over her stay has improved. Chest pain, nausea, and vomiting has resolved. Patient will not require dialysis at present moment. She will follow-up with Dr. Tristan as an outpatient. Her CPAP usage has improved quality of breathing. She is to follow-up outpatient with sleep study. She is also to secure a PCP. Lab work and vital signs are stable today. Patient has been cleared for discharge by all services. Diagnosis - Discharge Diagnosis (1) Chest pain Status: Acute (2) Diabetes Status: Chronic (3) Renal failure Status: Acute (4) Hypertension Status: Chronic Discharge Plan - Discharge Data Disposition: Disch To Home/Self Care - Discharge Medications New Insulin Lispro [HumaLOG] See Protocol SUBCUT ACHS #7 unit Iron (Carbonyl) [Feosol Natural Release Tab] 45 mg PO BID #60 tablet Isosorbide Dinitrate [Isordil] 15 mg PO BID #60 tablet Meclizine [Antivert] 25 mg PO QID PRN #20 tablet PRN Reason: Dizziness Acetaminophen Tab [Tylenol Tab] 650 mg PO Q4H PRN tablet PRN Reason: Fever, Headache, Mild Pain hydrALAZINE TAB [Apresoline Tab] 100 mg PO TID #90 tablet Levothyroxine Tab [Synthroid Tab] 100 mcg PO DAILY@0700 #30 tablet predniSONE TAB [PredniSONE] 10 mg PO DAILY #30 tablet Continue Bumetanide 1 mg PO BID Ergocalciferol (Vitamin D2) [Vitamin D2] 50,000 unit PO Q7DAY Albuterol Sulfate [Ventolin HFA] 2 puff INH Q4HR Atorvastatin [Lipitor] 40 mg PO DAILY Fluticasone 50 Mcg Nasal [place] [Flonase Nasal [place]] 2 sprays BOTH NARES DAILY Divalproex [Depakote] 250 mg PO BEDTIME Metoprolol Succinate 100 mg PO DAILY NIFEdipine [Nifedipine ER] 30 mg PO DAILY Hydrocodone/Acetaminophen [[place] 10-325 Tablet] 1 each PO BID PRN PRN Reason: Pain Zolpidem [Ambien] 10 mg PO BEDTIME PRN PRN Reason: Insomnia Citalopram [CeleXA] 10 mg PO DAILY Hydroxychloroquine [Plaquenil] 200 mg PO DAILY Pantoprazole Tab [Protonix Tab] 40 mg PO DAILY buPROPion HCl [Bupropion HCl Sr] 150 mg PO DAILY Discontinued predniSONE TAB [PredniSONE] 5 mg PO DAILY Levothyroxine Tab [Synthroid Tab] 75 mcg PO DAILY@0700 - Follow Up or Referral - Forms/Instructions Exam - Constitutional Vitals: Period Temp Pulse Resp BP Sys/Enciso Pulse Ox Last 24 Hr 97.1 F-98.8 F 75-98 16-20 131-167/81-99 95-100 Discharge Results Procedures and tests throughout hospitalization: Pending Orders 03/22/17 08:13 Cytology Request Routine Labs on day of discharge: Labs from last 24 hours 03/25/17 03/25/17 03/24/17 11:48 07:31 20:56 POC Glucose 109 H 66 L 154 H 03/24/17 16:21 POC Glucose 157 H DS: Provider Date of admission: 03/23/17 14:21 Primary care physician: . No PCP Attending physician on admission: Zuly Garcia MD Consults: 03/21/17 15:09 Consult to Case Mgmt/Social Srvs [CONS] Routine Reason for Case Mgmt/Social Srvs: Discharge Planning Consult Comment: patient needs a PCP Consult to Physician [CONS] Routine Comment: Consulting Provider: Cardiology - [facility] Person Notified: [facility] Date Notified: 03/21/17 Time Notified: 15:38 Consult Notification Comment: Yessenia tarango NP to see pt Consult to Physician [CONS] Routine Comment: Consulting [place] [facility] [facility] Person Notified: Dr. Tristan Date Notified: 03/21/17 Time Notified: 15:32 03/21/17 15:18 Consult to Dietitian [CONS] Routine Reason for Dietitian: Diet Recommendations 03/21/17 17:06 Consult to Sleep Center [CONS] Routine Reason for Sleep Center: Sleep Center Physician Consult Comment: Sleep study 2 months ago ([place]), didn't follow up for CPAP 03/22/17 08:21 Consult to Physician [CONS] Routine Comment: Consulting Provider: Abdulaziz Sosa Person Notified: Karl Date Notified: 03/22/17 Time Notified: 08:55 Consult Notification Comment: Left message about consult for Dr Sosa stating that he already know. 03/24/17 12:33 Consult to Case Mgmt/Social Srvs [CONS] Routine Reason for Case Mgmt/Social Srvs: Home Health Consult Comment: shower chair for home Discharging clinician: Arley Enamorado NP <Zuly Garcia - Last Filed: 03/25/17 14:05> Hospital Course - Time spent with patient Time with patient DS: Greater than 30 minutes (Time spent 35mins) Diagnosis - Discharge Diagnosis (1) Chest pain Status: Acute (2) Hypertension Status: Chronic (3) Chronic kidney disease Status: Chronic (4) Lupus Status: Chronic (5) Diabetes Status: Chronic (6) Dyslipidemia Status: Acute (7) Hypothyroidism Status: Acute (8) WALLACE (obstructive sleep apnea) Status: Acute (9) Pleural effusion Status: Acute (10) Dizziness Status: Acute (11) Anemia Status: Acute Discharge Plan - Discharge Data Condition at Discharge: Stable Discharge Diet: diabetic diet Activity: resume usual activities as tolerated - Forms/Instructions Additional Discharge Instructions: Follow with sleep clinic, Cardiology, Nephrology as scheduled. Follow with PCP in 1week Exam - Constitutional General appearance: no acute distress - Head Head exam: Present: normal inspection - Eye Eye exam: Present: EOMI - Respiratory Respiratory exam: Present: clear to auscultation bilaterally - Cardiovascular Cardiovascular exam: Present: regular rate and rhythm - GI/Abdominal GI/Abdominal exam: Present: normal bowel sounds - Extremities Exam Extremities exam: Present: normal inspection - Neurological Exam Neurological exam: Present: alert, oriented X3
--- NOTE | 2017-03-25 11:00 | Nephrology Progress Note ---
Nephrology - PN: Subj Interval history: Patient is resting comfortably no acute changes. No shortness of breath. Serum creatinine stable at 3.7. 03/23/2017. Patient is resting comfortably no acute changes. Serum creatinine stable. Continue with prednisone 10 mg. Patient to follow me on an outpatient in 3 weeks with a BMP. 03/25/2017. Patient is resting comfortably. Creatinine is stable at 3.7. No other acute changes. Have to follow patient on outpatient basis in 2 weeks with BMP. Exam (PN)-Nephrology - Vital Signs Vital signs: Period Temp Pulse Resp BP Sys/Enciso Pulse Ox Last 24 Hr 97.1 F-98.8 F 75-98 16-20 137-167/81-99 95-100 - General Appearance General appearance: well-developed, well-nourished EENT: ATNC Neck: supple Respiratory: clear Cardiology: regular rate Gastrointestinal: normoactive bowel sounds, no tenderness Neurologic: alert and oriented x3, CN 3-12 intact Musculoskeletal: no clubbing Psychiatric: mood/affect appropriate - Lab 03/22/17 00:53 03/22/17 00:53 Most recent lab results Calcium 8.8 MG/DL (8.5-10.1) 03/22/17 00:53 Magnesium 1.5 MG/DL (1.8-2.4) L 03/22/17 00:53 Assessment and Plan (1) Chronic kidney disease Status: Chronic Assessment and plan: Chronic kidney disease due to hypertension diabetes and lupus. Patient with a fistula in place. History of NSAID use. Recent history of tobacco use. Current Visit: Yes Qualifiers: Chronic kidney disease stage: stage 3 (moderate) Qualified Code(s): N18.3 - Chronic kidney disease, stage 3 (moderate) (2) Back pain Status: Chronic Current Visit: Yes Qualifiers: Back pain location: low back pain (3) Diabetes Status: Chronic Current Visit: Yes Qualifiers: Diabetes mellitus type: type 2 (4) Former tobacco use Status: Chronic Current Visit: Yes (5) Lupus Status: Chronic Assessment and plan: Continue prednisone 10mg daily Current Visit: Yes
--- NOTE | 2017-03-25 11:36 | Sleep Medicine Progress Note ---
Assessment and Plan (1) WALLACE (obstructive sleep apnea) Status: Acute Assessment and plan: Follow-up will be scheduled in sleep clinic with in 1 month. She will be set up to get her own CPAP machine after discharge today. Current Visit: Yes (2) Hypertension Status: Chronic Current Visit: Yes (3) Diabetes Status: Chronic Current Visit: Yes Qualifiers: Diabetes mellitus type: type 2 Sleep Medicine Subjective Interval history: Patient continues to do well with CPAP therapy. She spent over 7 hours last night on auto titration CPAP and had better control with a diagnostic AHI down to 8.5. Her leak time was much better at only 5 minutes. Overall, she seems to be improving and rather set her up for titration, will just set her up for follow-up in the sleep clinic. She is improving such that hopefully she will not require re-titration. Exam (Progress Note) - Constitutional Vitals: Period Temp Pulse Resp BP Sys/Enciso Pulse Ox Last 24 Hr 97.1 F-98.8 F 75-98 16-20 137-167/81-99 95-100 Exam: She is alert and responsive in no acute distress. She appears better today overall. Results - Labs CBC & BMP: 03/22/17 00:53 03/22/17 00:53 Lab Results: I have reviewed the past 24 hour labs
[2017-03-25 11:45] VITALS: BP 131/84
[2017-03-25] MEDS: ONDANSETRON 4 MG/2 ML VIAL IV PRN (12:24)
[2017-03-25] MEDS: ENOXAPARIN 30 MG/0.3 ML SYRINGE SUBCUT SCH (16:50)
== END 2017-03-25 17:56 | disposition home or self-care (01) | DRG 468 ==
LOC: N.EDINP 08:52 → N.ED 08:52 → N.EDINP 14:15 → N.TELES 15:08
PROVIDERS: ADMIT Internal Medicine; ATTEND Internal Medicine
PROC: IRTHORA (2017-03-22 11:00)

== ENCOUNTER 2017-09-06 18:08 | Inpatient (IN) ==
[2017-09-06 19:11] LABS: Basophils % 0.1 % (0.0-0.8); Eosinophils # 0.2 10*3/uL (0.0-0.87); Eosinophils % 1.6 % (0.00-10.9); Hematocrit 27.3 VOL% (35.7-47.0); Hemoglobin 8.3 GM/DL (12.0-16.0); Immature Granulocytes % 0.5 %; Immature Granulocytes Absolute 0.05 #; Lymphocytes # 0.9 10*3/uL (1.4-4.0); Lymphocytes % 9.5 % (21.3-54.2); Mean Corpuscular HGB Conc 30.4 GM/DL (32-36); Mean Corpuscular Hemoglobin 30 PG (27-34); Mean Corpuscular Volume 99.6 FL (87-102); Mean Platelet Volume 12.5 FL (9.6-12.0); Monocytes # 0.6 10*3/uL (0.11-0.8); Monocytes % 6.5 % (1.7-12.7); Neutrophils % 81.8 % (38.7-73.9); Platelet Count 187 T/CUMM (130-400); Red Blood Count 2.74 MC/CUMM (3.8-5.5); Red Cell Distribution Width 15.2 % (9.3-17.3); White Blood Count 9.8 T/CUMM (4-12)
[2017-09-06 19:14] LABS: INR 0.9; PT Patient Result 9.8 SECS; Partial Thromboplastin Time 25.7 SECS (0-40)
[2017-09-06 19:21] LABS: Alanine Aminotransferase 10 U/L (13-56); Albumin 2.7 G/DL (3.4-5.0); Alkaline Phosphatase 83 U/L (45-117); Amylase 286 U/L (25-115); Aspartate Amino Transferase 22 U/L (0-37); Bilirubin,Total < 0.39 MG/DL (0.2-1.0); Blood Urea Nitrogen 50 MG/DL (7-18); CKMB % 5.1 %; Calcium 8.8 MG/DL (8.5-10.1); Glucose 95 MG/DL (74-106); Osmolality,Calculated 289.5 MOS/KG (273-304); Sodium 139 MMOL/L (136-145); Total Protein 8.3 G/DL (6.4-8.3)
[2017-09-06 19:26] LABS: Potassium 6.6 MMOL/L (3.5-5.1)
[2017-09-06] MEDS ORDERED: CALCIUM GLUCONATE 1,000 MG in SODIUM CHLORIDE 0.9% 100 ML IV ONE (19:36)
[2017-09-06] MEDS ORDERED: INSULIN REGULAR 100 UNIT/ML IV STA (19:36)
[2017-09-06] MEDS ORDERED: DEXTROSE 50% 25 GM/50 ML VIAL IV STA (19:36)
[2017-09-06] MEDS ORDERED: FUROSEMIDE 40 MG/4 ML VIAL IV STA (19:39)
[2017-09-06 19:51] LABS: Apearance,Urine CLEAR (Clear); Bilirubin,Urine Negative (Negative); Blood, Urine Negative (Negative); Glucose,Urine (UA) 50 mg/dL (Negative); Hyaline Casts,Urine 3 /LPF (0-3); Ketones,Urine Negative (Negative); Mucus,Urine Occasional /LPF (Occasional); Nitrite,Urine Negative (Negative); Protein,Urine >=500 MG/DL; RBC,Urine <1 /HPF (0-4); Squamous Epithelial Cell,Urine Occasional /HPF (0-10); Urine Color Straw (Yellow); Urine Specific Gravity 1.009 (1.001-1.035); Urine Urobilinogen < 2.0 EU/DL (0.2-1.0); WBC,Urine 1 /HPF (0-6)
[2017-09-06] MEDS ORDERED: MORPHINE 2 MG/1 ML SYRINGE IV STA (19:51)
[2017-09-06] MEDS ORDERED: ONDANSETRON 4 MG/2 ML VIAL IV STA (19:51)
[2017-09-06] MEDS ORDERED: FUROSEMIDE 40 MG/4 ML VIAL ONE (19:55)
[2017-09-06] MEDS ORDERED: ONDANSETRON 4 MG/2 ML VIAL ONE (19:55)
[2017-09-06] MEDS ORDERED: MORPHINE 2 MG/1 ML SYRINGE ONE (19:56)
[2017-09-06] MEDS ORDERED: DEXTROSE 50% 25 GM/50 ML SYRINGE IV ONE (19:56)
[2017-09-06] MEDS ORDERED: INSULIN REGULAR 100 UNIT/ML ONE (19:58)
[2017-09-06] MEDS ORDERED: SODIUM CHLORIDE 0.9% 100 ML IV ONE (19:59)
[2017-09-06] MEDS ORDERED: CALCIUM GLUCONATE 1,000 MG/10 ML VIAL IV ONE (19:59)
[2017-09-06] MEDS ORDERED: GLUCAGON 1 MG VIAL IM PRN (23:02)
[2017-09-06] MEDS ORDERED: DEXTROSE 50% 25 GM/50 ML VIAL IV PRN (23:02)
[2017-09-06] MEDS ORDERED: ACETAMINOPHEN 325 MG TABLET PO PRN (23:02)
[2017-09-06] MEDS ORDERED: ALBUTEROL 2.5 MG/3 ML NEB RESP TX PRN (23:05)
[2017-09-06 23:41] LABS: Alanine Aminotransferase 13 U/L (13-56); Albumin 2.8 G/DL (3.4-5.0); Alkaline Phosphatase 88 U/L (45-117); Aspartate Amino Transferase 33 U/L (0-37); Bilirubin,Total < 0.39 MG/DL (0.2-1.0); Blood Urea Nitrogen 50 MG/DL (7-18); CKMB % 7.8 %; Calcium 9.1 MG/DL (8.5-10.1); Glucose 72 MG/DL (74-106); Osmolality,Calculated 292.3 MOS/KG (273-304); Potassium 5.9 MMOL/L (3.5-5.1); Sodium 141 MMOL/L (136-145); Total Protein 8.6 G/DL (6.4-8.3)
[2017-09-07] MEDS: BUMETANIDE 1 MG TABLET PO SCH ×3 (00:14→21:43)
[2017-09-07] MEDS: ENOXAPARIN 100 MG/ML SYRINGE SUBCUT SCH (00:14)
[2017-09-07] MEDS: SODIUM POLYSTYRENE SULFATE 15 GM/60 ML BOTTLE PO SCH ×4 (00:14→18:04)
[2017-09-07] MEDS: DIVALPROEX 250 MG TABLET PO SCH ×2 (00:14→21:34)
[2017-09-07] MEDS: buPROPion SR 150 MG TABLET PO SCH ×3 (00:14→21:34)
[2017-09-07] MEDS: GABAPENTIN 300 MG CAPSULE PO SCH ×2 (00:14→21:34)
[2017-09-07] MEDS: HYDROmorphone 2 MG/1 ML VIAL IV PRN ×4 (00:54→13:24)
[2017-09-07] MEDS: ONDANSETRON 4 MG/2 ML VIAL IV PRN ×2 (01:44→06:09)
[2017-09-07 04:39] LABS: Basophils % 0.2 % (0.0-0.8); Eosinophils # 0.2 10*3/uL (0.0-0.87); Eosinophils % 2.1 % (0.00-10.9); Hematocrit 30.4 VOL% (35.7-47.0); Hemoglobin 9.3 GM/DL (12.0-16.0); Immature Granulocytes % 0.3 %; Immature Granulocytes Absolute 0.03 #; Lymphocytes # 1.6 10*3/uL (1.4-4.0); Lymphocytes % 17.6 % (21.3-54.2); Mean Corpuscular HGB Conc 30.6 GM/DL (32-36); Mean Corpuscular Hemoglobin 31 PG (27-34); Mean Platelet Volume 12.5 FL (9.6-12.0); Monocytes # 0.6 10*3/uL (0.11-0.8); Monocytes % 6.8 % (1.7-12.7); Neutrophils # 6.5 10*3/uL (1.4-7.4); Platelet Count 195 T/CUMM (130-400); Red Blood Count 3.04 MC/CUMM (3.8-5.5); Red Cell Distribution Width 15.3 % (9.3-17.3); White Blood Count 8.9 T/CUMM (4-12)
[2017-09-07] MEDS: LEVOTHYROXINE 100 MCG TABLET PO SCH (05:53)
[2017-09-07 05:56] LABS: Calcium 9.4 MG/DL (8.5-10.1); Osmolality,Calculated 293.3 MOS/KG (273-304); Potassium 5.7 MMOL/L (3.5-5.1)
[2017-09-07] MEDS: NITROGLYCERIN 2% OINT 1 INCH/GM PACK TOP SCH ×3 (06:08→18:04)
[2017-09-07 07:06] LABS: Risk Ratio 3.11; VLDL CHOLESTEROL 23.6 MG/DL
[2017-09-07] MEDS ORDERED: NITROGLYCERIN SL 0.4 MG TABLET SL ONE ×2 (08:30→08:39)
[2017-09-07] MEDS ORDERED: METOPROLOL SUCCINATE XL 100 MG TABLET PO SCH (09:00)
[2017-09-07] MEDS: FAMOTIDINE 20 MG TABLET PO SCH (09:36)
[2017-09-07] MEDS: FERROUS SULFATE 325 MG TABLET PO SCH ×3 (09:37→16:27)
[2017-09-07] MEDS: ALLOPURINOL 100 MG TABLET PO SCH (09:37)
[2017-09-07] MEDS: PANTOPRAZOLE 40 MG TABLET PO SCH (09:38)
[2017-09-07] MEDS: CARVEDILOL 25 MG TABLET PO SCH ×2 (09:38→21:34)
[2017-09-07] MEDS: predniSONE 10 MG TABLET PO SCH (09:38)
[2017-09-07] MEDS: LORATADINE 10 MG TABLET PO SCH (09:38)
[2017-09-07] MEDS: ASPIRIN EC 81 MG TABLET PO SCH (09:38)
[2017-09-07] MEDS: FLUTICASONE 50 MCG NASAL SPRAY 16 GM BOTTLE BOTH NARES SCH (09:38)
[2017-09-07 11:01] LABS: Hepatitis A Ab IgM Quant 0.07 Index; Hepatitis A Ab IgM Result Negative (Negative); Hepatitis B Core IgM Quant 0.24 Index; Hepatitis B Core IgM Result Negative (Negative); Hepatitis B Surface Ag Quant 0.14 Index; Hepatitis B Surface Ag Result Negative (Negative); Hepatitis C Virus Ab Quant 0.07 Index; Hepatitis C Virus Ab Result Negative (Negative)
[2017-09-07] MEDS: ATORVASTATIN 40 MG TABLET PO SCH (21:34)
[2017-09-08] MEDS: SODIUM POLYSTYRENE SULFATE 15 GM/60 ML BOTTLE PO SCH ×2 (02:07→06:12)
[2017-09-08] MEDS: ENOXAPARIN 100 MG/ML SYRINGE SUBCUT SCH (02:07)
[2017-09-08] MEDS: NITROGLYCERIN 2% OINT 1 INCH/GM PACK TOP SCH ×2 (02:08→06:12)
[2017-09-08] MEDS: LEVOTHYROXINE 100 MCG TABLET PO SCH (06:13)
[2017-09-08] MEDS: ALLOPURINOL 100 MG TABLET PO SCH (08:37)
[2017-09-08] MEDS: FAMOTIDINE 20 MG TABLET PO SCH (08:37)
[2017-09-08] MEDS: BUMETANIDE 1 MG TABLET PO SCH ×2 (08:38→21:16)
[2017-09-08] MEDS: HYDROXYCHLOROQUINE 200 MG TABLET PO SCH (08:38)
[2017-09-08] MEDS: ASPIRIN EC 81 MG TABLET PO SCH (08:38)
[2017-09-08] MEDS: predniSONE 10 MG TABLET PO SCH (08:38)
[2017-09-08] MEDS: CARVEDILOL 25 MG TABLET PO SCH ×2 (08:38→21:16)
[2017-09-08] MEDS: LORATADINE 10 MG TABLET PO SCH (08:38)
[2017-09-08] MEDS: PANTOPRAZOLE 40 MG TABLET PO SCH (08:39)
[2017-09-08] MEDS: FERROUS SULFATE 325 MG TABLET PO SCH ×3 (08:39→16:08)
[2017-09-08] MEDS: buPROPion SR 150 MG TABLET PO SCH ×2 (08:39→21:16)
[2017-09-08] MEDS: FLUTICASONE 50 MCG NASAL SPRAY 16 GM BOTTLE BOTH NARES SCH (08:40)
[2017-09-08 09:25] LABS: Basophils % 0.1 % (0.0-0.8); Eosinophils # 0.1 10*3/uL (0.0-0.87); Eosinophils % 0.3 % (0.00-10.9); Hemoglobin 8.6 GM/DL (12.0-16.0); Immature Granulocytes % 0.4 %; Immature Granulocytes Absolute 0.07 #; Lymphocytes # 1.6 10*3/uL (1.4-4.0); Lymphocytes % 9.7 % (21.3-54.2); Mean Corpuscular HGB Conc 30.7 GM/DL (32-36); Mean Corpuscular Hemoglobin 30 PG (27-34); Mean Corpuscular Volume 98.9 FL (87-102); Mean Platelet Volume 11.8 FL (9.6-12.0); Monocytes # 1.3 10*3/uL (0.11-0.8); Monocytes % 7.8 % (1.7-12.7); Neutrophils # 13.3 10*3/uL (1.4-7.4); Neutrophils % 81.7 % (38.7-73.9); Platelet Count 167 T/CUMM (130-400); Red Blood Count 2.83 MC/CUMM (3.8-5.5); Red Cell Distribution Width 15.5 % (9.3-17.3); White Blood Count 16.3 T/CUMM (4-12)
[2017-09-08 09:44] LABS: Hypochromasia 1+; Lymphocytes 9 % (20-55); Ovalocytes Slight; Platelet Estimate Normal; Segmented Neutrophils 83 % (50-85); Total Cells Counted 100
[2017-09-08 09:45] LABS: Giant Platelets Few
[2017-09-08 09:47] LABS: CKMB % 2.6 %; Calcium 8.7 MG/DL (8.5-10.1); Osmolality,Calculated 299.3 MOS/KG (273-304); Potassium 4.9 MMOL/L (3.5-5.1)
[2017-09-08 09:48] LABS: Troponin I Only 8.25 NG/ML (0.00-0.045)
[2017-09-08] MEDS ORDERED: MAGNESIUM SULF RIDER 2 GM in PREMIX 1 EACH IV ONE (11:11)
[2017-09-08] MEDS: ASCORBIC ACID 500 MG TABLET PO SCH ×2 (12:46→21:16)
[2017-09-08] MEDS ORDERED: SODIUM POLYSTYRENE SULFATE 15 GM/60 ML BOTTLE PO SCH (21:00)
[2017-09-08] MEDS: ATORVASTATIN 40 MG TABLET PO SCH (21:16)
[2017-09-08] MEDS: GABAPENTIN 300 MG CAPSULE PO SCH (21:16)
[2017-09-08] MEDS: DIVALPROEX 250 MG TABLET PO SCH (21:16)
[2017-09-09] MEDS: ENOXAPARIN 100 MG/ML SYRINGE SUBCUT SCH (00:28)
[2017-09-09 05:10] LABS: Basophils % 0.2 % (0.0-0.8); Eosinophils # 0.1 10*3/uL (0.0-0.87); Eosinophils % 0.9 % (0.00-10.9); Hemoglobin 6.8 GM/DL (12.0-16.0); Immature Granulocytes % 0.4 %; Immature Granulocytes Absolute 0.05 #; Lymphocytes # 1.8 10*3/uL (1.4-4.0); Lymphocytes % 15.2 % (21.3-54.2); Mean Corpuscular HGB Conc 30.9 GM/DL (32-36); Mean Corpuscular Hemoglobin 30 PG (27-34); Mean Corpuscular Volume 97.8 FL (87-102); Mean Platelet Volume 13.4 FL (9.6-12.0); Monocytes # 0.8 10*3/uL (0.11-0.8); Monocytes % 7.2 % (1.7-12.7); Neutrophils # 8.8 10*3/uL (1.4-7.4); Neutrophils % 76.1 % (38.7-73.9); Platelet Count 126 T/CUMM (130-400); Red Blood Count 2.25 MC/CUMM (3.8-5.5); Red Cell Distribution Width 14.6 % (9.3-17.3); White Blood Count 11.5 T/CUMM (4-12)
[2017-09-09 05:49] LABS: Calcium 8.1 MG/DL (8.5-10.1); Osmolality,Calculated 293.7 MOS/KG (273-304); Potassium 3.8 MMOL/L (3.5-5.1)
[2017-09-09 05:59] LABS: Band Neutrophils 6 % (0-10); Lymphocytes 20 % (20-55); Segmented Neutrophils 72 % (50-85); Total Cells Counted 100
[2017-09-09 06:00] LABS: Macrocytosis 2+; Platelet Estimate Normal
[2017-09-09] MEDS: LEVOTHYROXINE 100 MCG TABLET PO SCH (06:28)
[2017-09-09] MEDS ORDERED: SODIUM CHLORIDE 0.9% 1,000 ML IV PRN ×2 (08:58→10:10)
[2017-09-09] MEDS: buPROPion SR 150 MG TABLET PO SCH ×2 (09:01→21:27)
[2017-09-09] MEDS: CARVEDILOL 25 MG TABLET PO SCH ×2 (09:02→21:27)
[2017-09-09] MEDS: PANTOPRAZOLE 40 MG TABLET PO SCH (09:03)
[2017-09-09] MEDS: FERROUS SULFATE 325 MG TABLET PO SCH ×3 (09:03→17:07)
[2017-09-09] MEDS: ASPIRIN EC 81 MG TABLET PO SCH (09:03)
[2017-09-09] MEDS: predniSONE 10 MG TABLET PO SCH (09:03)
[2017-09-09] MEDS: ASCORBIC ACID 500 MG TABLET PO SCH ×2 (09:03→21:27)
[2017-09-09] MEDS: ALLOPURINOL 100 MG TABLET PO SCH (09:04)
[2017-09-09] MEDS: LORATADINE 10 MG TABLET PO SCH (09:04)
[2017-09-09] MEDS: FLUTICASONE 50 MCG NASAL SPRAY 16 GM BOTTLE BOTH NARES SCH (10:07)
[2017-09-09] MEDS: FAMOTIDINE 20 MG TABLET PO SCH (10:08)
[2017-09-09] MEDS: BUMETANIDE 1 MG TABLET PO SCH ×2 (10:09→21:27)
[2017-09-09] MEDS: hydrALAZINE 25 MG TABLET PO SCH ×2 (15:05→21:28)
[2017-09-09 20:42] LABS: Hematocrit 27.4 VOL% (35.7-47.0); Hemoglobin 8.7 GM/DL (12.0-16.0)
[2017-09-09] MEDS: DIVALPROEX 250 MG TABLET PO SCH (21:27)
[2017-09-09] MEDS: ATORVASTATIN 40 MG TABLET PO SCH (21:27)
[2017-09-09] MEDS: GABAPENTIN 300 MG CAPSULE PO SCH (21:28)
[2017-09-10 05:14] LABS: Basophils % 0.1 % (0.0-0.8); Eosinophils # 0.1 10*3/uL (0.0-0.87); Hematocrit 22.4 VOL% (35.7-47.0); Hemoglobin 7.3 GM/DL (12.0-16.0); Immature Granulocytes % 0.5 %; Immature Granulocytes Absolute 0.05 #; Lymphocytes # 0.9 10*3/uL (1.4-4.0); Lymphocytes % 9.5 % (21.3-54.2); Mean Corpuscular HGB Conc 32.6 GM/DL (32-36); Mean Corpuscular Hemoglobin 31 PG (27-34); Mean Corpuscular Volume 94.1 FL (87-102); Mean Platelet Volume 14.2 FL (9.6-12.0); Monocytes # 0.7 10*3/uL (0.11-0.8); Monocytes % 7.1 % (1.7-12.7); Neutrophils % 81.8 % (38.7-73.9); Platelet Count 145 T/CUMM (130-400); Red Blood Count 2.38 MC/CUMM (3.8-5.5); Red Cell Distribution Width 14.6 % (9.3-17.3); White Blood Count 9.8 T/CUMM (4-12)
[2017-09-10 05:41] LABS: % Iron Saturation 20.8 % (18-50); Ferritin 302.3 ng/ml (8-252)
[2017-09-10] MEDS: LEVOTHYROXINE 100 MCG TABLET PO SCH (05:42)
[2017-09-10 05:46] LABS: Folate 7.1 NG/ML (5.4-24.0); Vitamin B12 709 PG/ML (211-911)
[2017-09-10 06:51] LABS: Hypochromasia Slight; Macrocytosis 1+
[2017-09-10 08:06] LABS: Sedimentation Rate-Westergren 124 MM/HR (0-30)
[2017-09-10] MEDS: ONDANSETRON 4 MG/2 ML VIAL IV PRN (08:24)
[2017-09-10] MEDS: BUMETANIDE 1 MG TABLET PO SCH ×2 (08:28→21:11)
[2017-09-10] MEDS: ASCORBIC ACID 500 MG TABLET PO SCH ×2 (08:28→21:12)
[2017-09-10] MEDS: ALLOPURINOL 100 MG TABLET PO SCH (08:29)
[2017-09-10] MEDS: CARVEDILOL 25 MG TABLET PO SCH ×2 (08:29→21:11)
[2017-09-10] MEDS: LORATADINE 10 MG TABLET PO SCH (08:29)
[2017-09-10] MEDS: FERROUS SULFATE 325 MG TABLET PO SCH ×3 (08:29→17:06)
[2017-09-10] MEDS: FAMOTIDINE 20 MG TABLET PO SCH (08:30)
[2017-09-10] MEDS: buPROPion SR 150 MG TABLET PO SCH ×2 (08:30→21:12)
[2017-09-10] MEDS: predniSONE 10 MG TABLET PO SCH (08:30)
[2017-09-10] MEDS: PANTOPRAZOLE 40 MG TABLET PO SCH (08:30)
[2017-09-10] MEDS: HYDROXYCHLOROQUINE 200 MG TABLET PO SCH (08:30)
[2017-09-10] MEDS: hydrALAZINE 25 MG TABLET PO SCH ×3 (08:31→21:11)
[2017-09-10] MEDS: ASPIRIN EC 81 MG TABLET PO SCH (08:31)
[2017-09-10] MEDS: FLUTICASONE 50 MCG NASAL SPRAY 16 GM BOTTLE BOTH NARES SCH (10:52)
[2017-09-10 16:46] LABS: Hematocrit 27.9 VOL% (35.7-47.0)
[2017-09-10 16:58] LABS: Hemoglobin 9.1 GM/DL (12.0-16.0)
[2017-09-10 17:18] LABS: Alanine Aminotransferase 16 U/L (13-56); Albumin 2.8 G/DL (3.4-5.0); Alkaline Phosphatase 82 U/L (45-117); Aspartate Amino Transferase 19 U/L (0-37); Bilirubin,Total < 0.39 MG/DL (0.2-1.0); Blood Urea Nitrogen 72 MG/DL (7-18); Calcium 8.1 MG/DL (8.5-10.1); Glucose 124 MG/DL (74-106); Potassium 4.2 MMOL/L (3.5-5.1); Sodium 136 MMOL/L (136-145); Total Protein 7.4 G/DL (6.4-8.3)
[2017-09-10] MEDS: DOCUSATE SODIUM 100 MG CAPSULE PO SCH (21:11)
[2017-09-10] MEDS: ATORVASTATIN 40 MG TABLET PO SCH (21:12)
[2017-09-10] MEDS: DIVALPROEX 250 MG TABLET PO SCH (21:12)
[2017-09-10] MEDS: GABAPENTIN 300 MG CAPSULE PO SCH (21:12)
[2017-09-10] MEDS ORDERED: BISACODYL 5 MG TABLET PO ONE (21:30)
[2017-09-11] MEDS: LEVOTHYROXINE 100 MCG TABLET PO SCH (06:01)
[2017-09-11 06:12] LABS: Hemoglobin 9.4 GM/DL (12.0-16.0)
[2017-09-11 06:38] LABS: Calcium 8.2 MG/DL (8.5-10.1); Osmolality,Calculated 294.7 MOS/KG (273-304); Potassium 3.7 MMOL/L (3.5-5.1)
[2017-09-11] MEDS: FERROUS SULFATE 325 MG TABLET PO SCH ×2 (08:14→13:25)
[2017-09-11] MEDS: DOCUSATE SODIUM 100 MG CAPSULE PO SCH (08:15)
[2017-09-11] MEDS: ALLOPURINOL 100 MG TABLET PO SCH (08:15)
[2017-09-11] MEDS: LORATADINE 10 MG TABLET PO SCH (08:15)
[2017-09-11] MEDS: ASCORBIC ACID 500 MG TABLET PO SCH (08:16)
[2017-09-11] MEDS: FAMOTIDINE 20 MG TABLET PO SCH (08:16)
[2017-09-11] MEDS: PANTOPRAZOLE 40 MG TABLET PO SCH (08:16)
[2017-09-11] MEDS: ASPIRIN EC 81 MG TABLET PO SCH (08:18)
[2017-09-11] MEDS: CARVEDILOL 25 MG TABLET PO SCH (08:18)
[2017-09-11] MEDS: predniSONE 10 MG TABLET PO SCH (08:18)
[2017-09-11] MEDS: hydrALAZINE 25 MG TABLET PO SCH (08:18)
[2017-09-11] MEDS: buPROPion SR 150 MG TABLET PO SCH (08:18)
[2017-09-11] MEDS: FLUTICASONE 50 MCG NASAL SPRAY 16 GM BOTTLE BOTH NARES SCH (08:20)
[2017-09-11 12:12] VITALS: BP 146/90
[2017-09-11] MEDS: BUMETANIDE 1 MG TABLET PO SCH (13:24)
[2017-09-12 10:13] LABS: Hemoglobin A1 (Alkaline) 97.1 % (96.5-98.5); Hemoglobin A2 (Alkaline) 2.9 % (1.5-3.5)
== END 2017-09-11 13:20 | disposition home or self-care (01) | DRG 190 ==
LOC: N.ED 18:08 → N.EDINP 18:08 → N.TELES 22:54 → N.EDINP 22:54 → SUATTDRO 09-07 08:59
PROVIDERS: ADMIT Hospitalist; ATTEND Hospitalist

== ENCOUNTER 2017-11-21 19:55 | Inpatient (IN) ==
[2017-11-21] MEDS ORDERED: FUROSEMIDE 40 MG/4 ML VIAL IV STA (23:09)
[2017-11-21] MEDS ORDERED: methylPREDNISolone SOD SUC 125 MG/2 ML VIAL IV STA (23:09)
[2017-11-22 00:02] LABS: Alanine Aminotransferase 13 U/L (13-56); Alkaline Phosphatase 81 U/L (45-117); Aspartate Amino Transferase 21 U/L (0-37); Bilirubin,Total < 0.39 MG/DL (0.2-1.0); Blood Urea Nitrogen 64 MG/DL (7-18); Calcium 8.5 MG/DL (8.5-10.1); Glucose 110 MG/DL (74-106); Osmolality,Calculated 293.7 MOS/KG (273-304); Potassium 5.4 MMOL/L (3.5-5.1); Sodium 138 MMOL/L (136-145); Total Protein 8.5 G/DL (6.4-8.3)
[2017-11-22] MEDS ORDERED: MAGNESIUM SULF RIDER 2 GM in PREMIX 1 EACH IV STA (00:15)
[2017-11-22 00:22] LABS: Basophils % 0.3 % (0.0-0.8); Eosinophils # 0.3 10*3/uL (0.0-0.87); Eosinophils % 3.2 % (0.00-10.9); Hematocrit 32.3 VOL% (35.7-47.0); Immature Granulocytes % 0.4 %; Immature Granulocytes Absolute 0.04 #; Mean Corpuscular Hemoglobin 31 PG (27-34); Mean Corpuscular Volume 99.7 FL (87-102); Mean Platelet Volume 12.1 FL (9.6-12.0); Monocytes # 0.7 10*3/uL (0.11-0.8); Monocytes % 7.9 % (1.7-12.7); Neutrophils % 77.2 % (38.7-73.9); Platelet Count 153 T/CUMM (130-400); Red Blood Count 3.24 MC/CUMM (3.8-5.5); Red Cell Distribution Width 15.8 % (9.3-17.3); White Blood Count 9.1 T/CUMM (4-12)
[2017-11-22] MEDS ORDERED: SODIUM POLYSTYRENE SULFATE 15 GM/60 ML BOTTLE PO STA (00:28)
[2017-11-22] MEDS ORDERED: CALCIUM CHLORIDE 1,000 MG/10 ML SYRINGE IV STA (00:28)
[2017-11-22] MEDS ORDERED: ALBUTEROL/IPRATROPIUM 3 ML NEB RESP TX STA (00:31)
[2017-11-22] MEDS ORDERED: ONDANSETRON 4 MG/2 ML VIAL ONE (01:18)
[2017-11-22] MEDS ORDERED: SODIUM BICARBONATE 50 MEQ/50 ML VIAL IV STA (01:22)
[2017-11-22] MEDS ORDERED: MORPHINE 4 MG/1 ML VIAL ONE (01:30)
[2017-11-22] MEDS ORDERED: SODIUM BICARBONATE 50 MEQ/50 ML SYRINGE IV ONE (01:54)
[2017-11-22] MEDS ORDERED: ONDANSETRON 4 MG/2 ML VIAL IV STA (01:56)
[2017-11-22] MEDS ORDERED: MORPHINE 4 MG/1 ML VIAL IV STA (01:56)
[2017-11-22] MEDS ORDERED: DEXTROSE 50% 25 GM/50 ML VIAL IV PRN (02:53)
[2017-11-22] MEDS ORDERED: ONDANSETRON 4 MG/2 ML VIAL IV PRN (02:53)
[2017-11-22] MEDS ORDERED: GLUCAGON 1 MG VIAL IM PRN (02:53)
[2017-11-22] MEDS ORDERED: MORPHINE 4 MG/1 ML VIAL IV PRN (02:53)
[2017-11-22] MEDS ORDERED: traMADol 50 MG TABLET PO PRN (02:59)
[2017-11-22] MEDS ORDERED: PROMETHAZINE 25 MG TABLET PO PRN (02:59)
[2017-11-22 03:10] LABS: Sedimentation Rate-Westergren 76 MM/HR (0-30)
[2017-11-22] MEDS: DIVALPROEX ER 500 MG TABLET PO SCH ×2 (04:50→22:01)
[2017-11-22] MEDS: CARVEDILOL 3.125 MG TABLET PO SCH ×3 (04:52→08:34)
[2017-11-22 06:51] LABS: Basophils % 0.1 % (0.0-0.8); Eosinophils % 0.1 % (0.00-10.9); Hematocrit 32.2 VOL% (35.7-47.0); Hemoglobin 10.4 GM/DL (12.0-16.0); Immature Granulocytes % 0.5 %; Immature Granulocytes Absolute 0.04 #; Lymphocytes # 0.4 10*3/uL (1.4-4.0); Lymphocytes % 4.8 % (21.3-54.2); Mean Corpuscular HGB Conc 32.3 GM/DL (32-36); Mean Corpuscular Hemoglobin 32 PG (27-34); Mean Corpuscular Volume 97.9 FL (87-102); Mean Platelet Volume 12.7 FL (9.6-12.0); Monocytes # 0.1 10*3/uL (0.11-0.8); Monocytes % 0.8 % (1.7-12.7); Neutrophils # 7.5 10*3/uL (1.4-7.4); Neutrophils % 93.7 % (38.7-73.9); Platelet Count 166 T/CUMM (130-400); Red Blood Count 3.29 MC/CUMM (3.8-5.5); Red Cell Distribution Width 15.9 % (9.3-17.3)
[2017-11-22] MEDS: LEVOTHYROXINE 100 MCG TABLET PO SCH (06:52)
[2017-11-22 07:17] LABS: Lymphocytes 4 % (20-55); Segmented Neutrophils 96 % (50-85); Total Cells Counted 100
[2017-11-22 07:18] LABS: Hypochromasia Slight; Ovalocytes Slight; Platelet Estimate Normal
[2017-11-22 07:59] LABS: Alanine Aminotransferase 17 U/L (13-56); Albumin 3.3 G/DL (3.4-5.0); Alkaline Phosphatase 100 U/L (45-117); Aspartate Amino Transferase 21 U/L (0-37); Bilirubin,Total < 0.39 MG/DL (0.2-1.0); Blood Urea Nitrogen 66 MG/DL (7-18); Calcium 9.4 MG/DL (8.5-10.1); Glucose 192 MG/DL (74-106); Osmolality,Calculated 298.7 MOS/KG (273-304); Sodium 138 MMOL/L (136-145); Total Protein 9.5 G/DL (6.4-8.3)
[2017-11-22] MEDS: predniSONE 5 MG TABLET PO SCH (08:18)
[2017-11-22] MEDS: ATORVASTATIN 40 MG TABLET PO SCH (08:18)
[2017-11-22] MEDS: PANTOPRAZOLE 40 MG TABLET PO SCH (08:18)
[2017-11-22] MEDS: FERROUS SULFATE 325 MG TABLET PO SCH ×3 (08:18→18:07)
[2017-11-22] MEDS: ASPIRIN EC 81 MG TABLET PO SCH (08:18)
[2017-11-22] MEDS: MECLIZINE 25 MG TABLET PO SCH (08:18)
[2017-11-22] MEDS: FLUTICASONE 50 MCG NASAL SPRAY 16 GM BOTTLE BOTH NARES SCH (08:18)
[2017-11-22] MEDS: ALLOPURINOL 100 MG TABLET PO SCH (08:18)
[2017-11-22] MEDS: LORATADINE 10 MG TABLET PO SCH (08:18)
[2017-11-22] MEDS: buPROPion SR 150 MG TABLET PO SCH ×2 (08:30→22:01)
[2017-11-22] MEDS: ENOXAPARIN 30 MG/0.3 ML SYRINGE SUBCUT SCH (08:31)
[2017-11-22] MEDS: INSULIN REGULAR 100 UNIT/ML SUBCUT SCH ×4 (08:34→22:02)
[2017-11-22] MEDS ORDERED: HYDROXYCHLOROQUINE 200 MG TABLET PO SCH (09:00)
[2017-11-22] MEDS ORDERED: BUMETANIDE 1 MG TABLET PO SCH (09:00)
[2017-11-22] MEDS ORDERED: SULFAMETHOX/TRIMETHOPRIM 800-160 MG TABLET PO SCH (09:00)
[2017-11-22] MEDS: ALBUTEROL/IPRATROPIUM 3 ML NEB RESP TX PRN ×2 (10:25→22:16)
[2017-11-22 12:07] LABS: Immuno Free Light Chain Kappa 41.41 MG/DL (0.33-1.94); Immuno Free Light Chain Lambda 22.18 MG/DL (0.57-2.63); Immuno Free Light Chain Ratio 1.87 MG/DL (0.26-1.65)
[2017-11-22] MEDS: TORSEMIDE 20 MG TABLET PO SCH ×2 (14:43→22:02)
[2017-11-22] MEDS: LABETALOL 100 MG TABLET PO SCH ×2 (14:44→22:02)
[2017-11-22] MEDS ORDERED: FUROSEMIDE 40 MG/4 ML VIAL IV SCH (15:00)
[2017-11-22] MEDS ORDERED: FUROSEMIDE 80 MG TABLET PO SCH (21:00)
[2017-11-22] MEDS ORDERED: GABAPENTIN 300 MG CAPSULE PO SCH (21:00)
[2017-11-23] MEDS: LEVOTHYROXINE 100 MCG TABLET PO SCH (06:13)
[2017-11-23 06:19] LABS: Basophils % 0.1 % (0.0-0.8); Eosinophils % 0.1 % (0.00-10.9); Hematocrit 26.5 VOL% (35.7-47.0); Hemoglobin 8.5 GM/DL (12.0-16.0); Immature Granulocytes % 0.5 %; Immature Granulocytes Absolute 0.05 #; Lymphocytes # 0.8 10*3/uL (1.4-4.0); Mean Corpuscular HGB Conc 32.1 GM/DL (32-36); Mean Corpuscular Hemoglobin 31 PG (27-34); Mean Corpuscular Volume 97.1 FL (87-102); Mean Platelet Volume 12.3 FL (9.6-12.0); Monocytes % 10.6 % (1.7-12.7); Neutrophils # 7.4 10*3/uL (1.4-7.4); Neutrophils % 79.7 % (38.7-73.9); Platelet Count 141 T/CUMM (130-400); Red Blood Count 2.73 MC/CUMM (3.8-5.5); Red Cell Distribution Width 15.5 % (9.3-17.3); White Blood Count 9.3 T/CUMM (4-12)
[2017-11-23 06:46] LABS: Alanine Aminotransferase 13 U/L (13-56); Albumin 2.6 G/DL (3.4-5.0); Alkaline Phosphatase 72 U/L (45-117); Aspartate Amino Transferase 10 U/L (0-37); Bilirubin,Total < 0.39 MG/DL (0.2-1.0); Blood Urea Nitrogen 68 MG/DL (7-18); Calcium 8.4 MG/DL (8.5-10.1); Glucose 76 MG/DL (74-106); Osmolality,Calculated 291.8 MOS/KG (273-304); Potassium 5.2 MMOL/L (3.5-5.1); Sodium 137 MMOL/L (136-145); Total Protein 7.7 G/DL (6.4-8.3)
[2017-11-23] MEDS: INSULIN REGULAR 100 UNIT/ML SUBCUT SCH ×2 (07:36→11:31)
[2017-11-23] MEDS ORDERED: SODIUM BICARBONATE 650 MG TABLET PO SCH (09:00)
[2017-11-23] MEDS ORDERED: metOLazone 5 MG TABLET PO SCH (09:00)
[2017-11-23 09:15] LABS: Total Protein (Chem) 9.7 G/DL (6.4-8.3)
[2017-11-23 09:17] LABS: Albumin (SPE) 4.7 G/DL (3.2-5.3); Albumin (SPE) Rel % 48.6 %; Alpha 1 (SPE) 0.3 G/DL (0.1-0.4); Alpha 2 (SPE) 1.1 G/DL (0.4-1.0); Alpha 2 (SPE) Rel % 10.9 %
[2017-11-23 09:19] LABS: Beta (SPE) 1.2 G/DL (0.5-1.1); Beta (SPE) Rel % 12.9 %; Gamma (SPE) 2.4 G/DL (0.7-1.7); Gamma (SPE) Rel % 24.6 %
[2017-11-23] MEDS: ENOXAPARIN 30 MG/0.3 ML SYRINGE SUBCUT SCH (09:26)
[2017-11-23] MEDS: ALLOPURINOL 100 MG TABLET PO SCH (09:26)
[2017-11-23] MEDS: LORATADINE 10 MG TABLET PO SCH (09:26)
[2017-11-23] MEDS: FERROUS SULFATE 325 MG TABLET PO SCH ×2 (09:26→11:49)
[2017-11-23] MEDS: ATORVASTATIN 40 MG TABLET PO SCH (09:26)
[2017-11-23] MEDS: PANTOPRAZOLE 40 MG TABLET PO SCH (09:26)
[2017-11-23] MEDS: buPROPion SR 150 MG TABLET PO SCH (09:27)
[2017-11-23] MEDS: ASPIRIN EC 81 MG TABLET PO SCH (09:27)
[2017-11-23] MEDS: TORSEMIDE 20 MG TABLET PO SCH (09:27)
[2017-11-23] MEDS: LABETALOL 100 MG TABLET PO SCH (09:27)
[2017-11-23] MEDS: MECLIZINE 25 MG TABLET PO SCH (09:27)
[2017-11-23] MEDS: predniSONE 5 MG TABLET PO SCH (09:27)
[2017-11-23] MEDS: FLUTICASONE 50 MCG NASAL SPRAY 16 GM BOTTLE BOTH NARES SCH (09:29)
[2017-11-23 13:33] VITALS: BP 127/74
[2017-11-23 17:50] LABS: Collection Time,Urine 24 HOURS; Total Protein 24 Hr Ur Result 1860 MG/24HR (0-149.1); Total Volume,Urine 750 ML (400-2000)
[2017-11-24 08:39] LABS: Albumin (UPE) 1240.6 MG/24H; Albumin (UPE) Rel % 66.7 %; Alpha 1 (UPE) 72.5 MG/24H; Alpha 1 (UPE) Rel % 3.9 %; Alpha 2 (UPE) 174.8 MG/24H; Alpha 2 (UPE) Rel % 9.4 %
[2017-11-24 08:40] LABS: Beta (UPE) 50.2 MG/24H; Beta (UPE) Rel % 2.7 %; Gamma (UPE) 321.8 MG/24H; Gamma (UPE) Rel % 17.3 %
== END 2017-11-23 16:27 | disposition home or self-care (01) | DRG 683 ==
LOC: N.ED 19:55 → N.EDINP 11-22 02:54 → N.3E 11-22 06:07
PROVIDERS: ADMIT Internal Medicine; ATTEND Internal Medicine